=== PATIENT | male | born 1965 | race Caucasian/White ===

== ENCOUNTER → 2020-08-03 14:46 | Outpatient (BNVA) | payer BC, SELFPAY | PROVIDERS: PCP Internal Medicine; Visit Provider Urology ==

== ENCOUNTER 2020-09-14 13:19 | Outpatient (REF) | payer BC, SELFPAY ==
--- NOTE | ~2020-09-14 | US_ITS ---
EXAMINATION: PENILE ULTRASOUND CLINICAL INFORMATION: Peyronie disease COMPARISON: None TECHNIQUE: Renal ultrasound FINDINGS: The corpus cavernosum and corpus spongiosum appear unremarkable. There are calcifications seen about the midline dorsal aspect of the body of the penis closer to the glands which does not appear to be related to the dorsal vessels. US/US penile IMPRESSION: Calcifications about the dorsum of the penis which do not appear to be associated with the dorsal veins or arteries.
== END 2020-09-14 13:20 | disposition home or self-care (01) ==
LOC: HO.US 13:19
PROVIDERS: Visit Provider Urology
DX: N48.6 Induration penis plastica (principal)
CPT/HCPCS: 76857

== ENCOUNTER → 2020-09-21 13:30 | Outpatient (BNVA) | payer BC, SELFPAY | PROVIDERS: PCP Internal Medicine; Visit Provider Urology ==

== ENCOUNTER 2021-01-07 12:13 | Outpatient (REF) | payer BC, SELFPAY | END 2021-01-07 12:14 | disposition home or self-care (01) | LOC: HO.LAB 12:13 | PROVIDERS: PCP Internal Medicine; Visit Provider Internal Medicine | DX: Z20.822 Contact with and (suspected) exposure to COVID-19 (principal) | CPT/HCPCS: C9803; U0003; U0005 ==

== ENCOUNTER 2021-03-07 09:48 | Outpatient (REF) | payer BC, SELFPAY ==
[2021-03-07 10:20] LABS: Binax Internal Control QC Valid; Binax Now Covid-19 Ag Positive (Negative)
== END 2021-03-07 09:49 | disposition home or self-care (01) ==
LOC: HO.LAB 09:48
PROVIDERS: Visit Provider Internal Medicine
DX: Z20.822 Contact with and (suspected) exposure to COVID-19 (principal)
CPT/HCPCS: C9803

== ENCOUNTER → 2021-03-25 13:03 | Outpatient (BNVA) | payer BC, SELFPAY | PROVIDERS: PCP Internal Medicine; Visit Provider Urology ==

== ENCOUNTER 2021-06-10 11:28 | Outpatient (REF) | payer BC, SELFPAY ==
[2021-06-10 12:37] LABS: COVID-19 Test Negative (Negative)
== END 2021-06-10 11:29 | disposition home or self-care (01) ==
LOC: HO.LAB 11:28
PROVIDERS: Visit Provider Internal Medicine
DX: Z20.822 Contact with and (suspected) exposure to COVID-19 (principal)
CPT/HCPCS: 87635; C9803

== ENCOUNTER 2021-12-20 08:16 | Outpatient (REF) | payer BC, SELFPAY ==
[2021-12-20 10:34] LABS: MANUAL DIFF FLAG NO
[2021-12-20 10:45] LABS: Basophils Absolute Auto 0.1 X10*3/uL (0.0-0.2); Basophils Percent Auto 0.8 % (0-2); Eosinophils Absolute Auto 0.2 X10*3/uL (0.0-0.4); Eosinophils Percent Auto 3.3 % (0-4); Hematocrit 46.4 % (42.0-52.0); Hemoglobin 15.4 g/dl (14.0-18.0); Imm Gran Abs Auto 0.01 X10*3/uL (0.00-0.03); Imm Gran Pct Auto 0.1 % (0.0-0.4); Lymphocytes Absolute Auto 1.3 X10*3/uL (1.2-4.9); Mean Corpuscular HGB Conc 33.2 g/dl (31.0-36.0); Mean Corpuscular Hemoglobin 30.3 pg (27.0-33.0); Mean Corpuscular Volume 91.2 fL (80.0-98.0); Mean Platelet Volume 9.2 fL (9.4-12.4); Monocytes Absolute Auto 0.6 X10*3/uL (0.1-1.2); Monocytes Percent Auto 8.5 % (2-11); Neutrophils Absolute Auto 5.1 x10*3/uL (2.0-8.3); Neutrophils Percent Auto 69.3 % (45-73); Platelet Count 254 X10*3/uL (160-400); Red Blood Count 5.09 X10*6/uL (4.60-5.80); Red Cell Distribution Width 13.2 % (11.0-16.0); White Blood Count 7.3 X10*3/uL (4.8-10.8)
[2021-12-20 11:26] LABS: Alanine Aminotransferase 15 U/L (0-40); Albumin Level 4.1 g/dL (3.5-5.0); Alkaline Phosphatase 77 U/L (39-117); Anion Gap 12 (12-20); Aspartate Amino Transferase 16 U/L (5-37); Bilirubin Total 0.5 mg/dL (0.0-1.0); Blood Urea Nitrogen 16 mg/dL (9-16); Calcium 8.8 mg/dL (8.4-10.2); Carbon Dioxide 27 mmol/L (22-29); Chloride 104 mmol/L (96-108); Cholesterol 166 mg/dL; Estimated Glomerular Filt Rate > 60; Glucose Random 91 mg/dL (60-115); HDL Cholesterol 43 mg/dL; LDL Cholesterol Calculated 107 mg/dl; Potassium 4.7 mmol/L (3.3-5.1); Prostate Specific Antigen Scr 1.34 ng/mL (<0.05-4.0); Sodium 138 mmol/L (135-145); Thyroid Stimulating Hormone 0.86 uIU/mL (0.32-4.0); Total Protein 6.6 g/dL (6.5-8.0); Triglycerides 80 mg/dL
== END 2021-12-20 08:17 | disposition home or self-care (01) ==
LOC: HO.10HDL 08:16
PROVIDERS: Visit Provider Internal Medicine
DX: M51.36 Other intervertebral disc degeneration, lumbar region (principal); E78.00 Pure hypercholesterolemia, unspecified; Z12.5 Encounter for screening for malignant neoplasm of prostate
CPT/HCPCS: 36415; 80053; 80061; 84153; 84439; 84443; 85025

== ENCOUNTER 2022-01-30 11:59 | Day surgery (SDC) | payer BC, SELFPAY ==
--- NOTE | 2022-01-27 09:43 | HO.ANESPROP2 ---
Documented by User: Eva Pascal NP 01/27/22 09:44 HPI - Anesthesia Eval Consult details Narrative: 56yo M for Plication For Peyonies Disease PMFSH Active Problems Active Problems: All Active Problems (Updated 12/19/21 @ 15:13 by Calos Salamanca MD) Tinea pedis (Acute) Colonoscopy refused (Acute) History of tobacco abuse (Acute) Colon cancer screening (Acute) Annual physical exam (Acute) COVID-19 virus infection (Acute) Lumbar degenerative disc disease (Acute) Peripheral neuropathy (Acute) Peyronie's disease (Acute) Erectile dysfunction (Acute) Past Medical History Medical History Colon cancer screening Erectile dysfunction Family History Family History Father Pancreatic cancer Hx of CABG Surgical History Surgical History (Updated 01/30/22 @ 12:38 by July Ann RN) No pertinent past surgical history Social History Social History Housing: House Alcohol intake: current Patient Tobacco Use Status: Former Tobacco user Quit Date: 15 yr ago Tobacco use type: Cigarette Years Smoked: quit 2011 e-Cigarette/Vaping Use: Never Used Second Hand Smoke Exposure: No Use of substances other than those prescribed or required for medical reasons: Yes Substance Use Frequency: Occasionally Are you DNR?: No Advance Directives: No Advance Directives Information Provided: Yes Current occupational status: employed Cognitive needs: No Hearing needs: No Vision needs: Yes Meds Allergies Allergy/AdvReac Type Severity Reaction Status Date / Time No Known Allergies Allergy Verified 01/30/22 12:38 [No Known Allergies*] Exam Exam Date and Time: January 27, 2022 0943 Pertinent Lab Results Pertinent Lab Results: Laboratory Tests 12/20/21 12/20/21 08:00 08:00 WBC 7.3 Hgb 15.4 Hct 46.4 Plt Count 254 Sodium 138 Potassium 4.7 Chloride 104 Carbon Dioxide 27 BUN 16 Creatinine 0.90 Assessment and Plan Assessment Anesthesia Assessment: Chart Reviewed Documented by User: Zuhair Andrea MD 01/30/22 17:47 PMF Past Medical History Medical History Colon cancer screening Erectile dysfunction Functional capacity: independent ambulation Family History Family History Father Pancreatic cancer Hx of CABG Family history of problems with anesthesia: No Surgical History Surgical History (Updated 01/30/22 @ 12:38 by July Ann, RICHARD) No pertinent past surgical history History of Problems with Anesthesia: No Social History Social History Housing: House Alcohol intake: current Patient Tobacco Use Status: Former Tobacco user Quit Date: 15 yr ago Tobacco use type: Cigarette Years Smoked: quit 2011 e-Cigarette/Vaping Use: Never Used Second Hand Smoke Exposure: No Use of substances other than those prescribed or required for medical reasons: Yes Substance Use Frequency: Occasionally Are you DNR?: No Advance Directives: No Advance Directives Information Provided: Yes Current occupational status: employed Cognitive needs: No Hearing needs: No Vision needs: Yes Meds Allergies Allergy/AdvReac Type Severity Reaction Status Date / Time No Known Allergies Allergy Verified 01/30/22 12:38 [No Known Allergies*] Exam Airway Mallampati Class: III TM Dist: >3cm Neck ROM: Full (santamaria ) Loose/Missing/Broken Teeth: Yes Heart: S1,S2 Lungs: b/l breath sounds Assessment and Plan Assessment Anesthesia Assessment: Anesthesia Plan Discussed Final Anesthetic Review Family History of Problems with Anesthesia: No History of Problems with Anesthesia: No NPO: Yes ASA Class: II Final Preanesthetic Review: Meds/Allgs Chart Reviewed, Consent Obtained/Reviewed and Anes Risks/Benef Reviewed Patient Risk: Intermediate Procedure Risk: Intermediate Anesthetic Plan Anesthetic Plan: GA Disposition: Standard PACU
[2022-01-30] VITALS (9 sets, daily range): BP systolic 97–117; BP diastolic 35–70; PULSE 54–68; RESP 15–18; TEMP 36.1–36.6; O2SAT 95–100; BMI 25.0
[2022-01-30] MEDS: Lactated Ringers 1,000 ML 100 ML IVCONT (12:37)
--- NOTE | 2022-01-30 15:12 | MHC.SHP ---
Pre-Procedural Eval Section A Date of Service: 01/30/22 The patient is an INPATIENT: No Changes since office visit: No Cold of Flu in the past 2 weeks, No New Medical Problems, No Changes in Medication and No Patient answered all questions The History & Physical has been completed within 30 days and I have reviewed it.: Yes Section B Chief Complaint: Induration penis plastica Allergies: Allergies Allergy/AdvReac Type Severity Reaction Status Date / Time No Known Allergies Allergy Verified 01/30/22 12:38 [No Known Allergies*] Review of Systems Sugical H&P ROS: Negative: Constitution, Cardiovascular, Respiratory, Neurological, Psychiatric, Hem-Onc, Allergic/Immunologic, Gastrointestinal, Genitourinary, Musculoskeletal, Integumentary, Endocrine and Eyes/Ears/Nose/Throat Exam Surgical H&P Exam: Normal: HEENT, Normal: Heart, Normal: Lungs, Normal: Extremities, Normal: Abdomen, Normal: Skin and Normal: Neurological Plan Diagnosis/Plan: Unchanged ( Peyronie penile plication) I have reviewed the history and physical and performed a pertinent physical examination on my patient. No changes have occurred unless specified. Time Spent With Patient Time: Total time managing care of this patient today ____ minutes.
--- NOTE | 2022-01-30 16:50 | W.PM.OPN ---
Operative Note Operative Note Date of Service: 01/30/22 Narrative: PreOperative Diagnosis: Peyronie's disease with Ventral penile curvature Post Operative Diagnosis: Peyronie's disease with Ventral curvature Procedure: Artificial erection with penile plication Surgeon: Dr Victor Manuel Solis Anesthesia: General Indications for procedure: Penile curvature that has failed conservative therapy. The patient had undergone intermittent vacuum pump therapy with failure of resolution. Current erection with Forty-five degree dorsal curvature. 30 degree left horizontal curvature. Curvature in proximal high of penis when erect. Casper understands available options including risks for erectile dysfunction, bruising, need for secondary procedure. at baseline has minimal erectile issues. Procedure: After informed consent was verified the patient was brought to the operating room and placed in a supine position. Anesthesia was administered per protocol. Genital area was shaved. The patient was prepped and draped in a sterile fashion. Safety pause time-out was performed. Antibiotics have been given. Dorsal nerve block was performed and penile ring block with local anesthetic was completed for post procedure pain control. Sixteen Chadian Amin catheter was placed on the field. Using a Mata drain and a 21 gauge butterfly needle an artificial erection was induced with injectable saline 60cc. The 45 degree curvature was quite marked in the distal aspect of the shaft approximately 2 cm from the penile sulcus This was at maximum inflection 2 cm proximal from the penile sulcus along the penile shaft. A 4 cm incision was marked along the ventral median raphe just distal to penoscrotal junction. Local anesthetic was infiltrated and the incision taken down through the subcutaneous tissue to expose the corpora spongiosum. Dissection of Wassaic fascia was performed laterally on each side exposing the corpora cavernosa. The artificial erection was reinforced. Senz retractors were used to manipulate the incision over the full length of the penis. 3.0 Surgilon sutures were placed 4 mm from the boundary between the spongiosum and the corpora. The sutures were placed in a anob-[id number]-[id number] configuration with 4-5mm between each needle pass. Sutures were first placed toward the glans of the penis with 2 sutures on both the left and the right sides. This alone corrected significant portion of the curvature. Three additional sutures were placed running in the line in down the right corporal body. Another additional suture was placed in the proximal half of the left corporal body. Each suture had approximately 5 throws for knot. Curvature was able to be corrected to between 5 and 10%. Excess suture material was removed. Each line of sutures was covered with a layer of tissue using a running 3-0 Vicryl reapproximatling Gonzalez's fascia. A 2nd layer of tissue was then placed over the suture lines using running 3.0 vicryl. Skin was closed with 4.0 monocryl with glue over the incision. A dressing was placed consisting of Leticia wrap and Coban dressing. Amin catheter was removed.The patient tolerated the procedure well, was extubated in the operating room and transferred in stable condition to the recovery area. Pathology: none Drains: none
== END 2022-01-30 18:37 | disposition home or self-care (01) ==
PROVIDERS: PCP Internal Medicine; Visit Provider Urology
PROC: (CPT 54360; principal; 2022-01-30 13:30)
DX: N48.6 Induration penis plastica (principal); N52.9 Male erectile dysfunction, unspecified; Z87.891 Personal history of nicotine dependence
CPT/HCPCS: 54360; J0690; J2250; J2405; J2795; J3010

== ENCOUNTER → 2022-02-01 10:25 | Outpatient (BNVA) | payer BC, SELFPAY | PROVIDERS: PCP Internal Medicine; Visit Provider Urology | DX: Z13.89 Encounter for screening for other disorder (principal) ==

== ENCOUNTER → 2022-03-17 13:17 | Outpatient (BNVA) | payer BC, SELFPAY | PROVIDERS: PCP Internal Medicine; Visit Provider Urology | DX: Z13.89 Encounter for screening for other disorder (principal) ==

== ENCOUNTER 2022-05-28 18:30 | Inpatient (IN) | payer BC, SELFPAY ==
--- NOTE | ~2022-05-28 | US_ITS ---
EXAMINATION: US ABDOMEN LIMITED CLINICAL INFORMATION: Right upper quadrant pain. COMPARISON: None available. TECHNIQUE: Real-time imaging of the right upper quadrant abdominal viscera. FINDINGS: PANCREAS: Normal. LIVER: The liver is normal in size. The liver contour is normal. Parenchymal echogenicity is normal. No focal hepatic lesion. There is no intrahepatic biliary duct dilatation seen. GALLBLADDER: Normal. The gallbladder is physiologically distended. Multiple mobile gallstones are present, the largest measuring 2.2 x 1.6 x 2.2 cm. There is an impacted stone in the gallbladder neck measuring 1.2 x 0.9 x 1.2 cm. There is a 3 mm gallbladder polyp present. No evidence of gallbladder wall thickening or pericholecystic fluid. COMMON BILE DUCT: Normal in caliber measuring 0.3 cm in diameter. RIGHT KIDNEY: No hydronephrosis. No renal calculi or focal parenchymal lesions. The kidney measures 10.6 cm in maximum dimension. FREE FLUID: None. US/US abdomen limited IMPRESSION: 1. Cholelithiasis with an impacted stone in the gallbladder neck. No pericholecystic fluid suggests cholecystitis. 2. 3 mm gallbladder polyp.
--- NOTE | ~2022-05-28 | XR_ITS ---
EXAMINATION: XR CHEST CLINICAL INFORMATION: Back pain radiating to the chest since this morning. COMPARISON: Chest radiograph 11/23/2009 TECHNIQUE: 2 views of the chest were obtained. FINDINGS: Normal appearance of the cardiomediastinal structures. No effusions or pneumothoraces. No focal pulmonary consolidation. Normal pattern of pulmonary vasculature. Mild multilevel endplate osteophytosis of the thoracic spine. XR/XR chest 2V IMPRESSION: No acute cardiopulmonary abnormalities. Lungs clear. Normal cardiomediastinal silhouette.
--- NOTE | 2022-05-28 18:32 | ECG_ITS ---
Test Reason : Back rib cage pain Blood Pressure : / mmHG Vent. Rate : 063 BPM Atrial Rate : 063 BPM P-R Int : 116 ms QRS Dur : 086 ms QT Int : 390 ms P-R-T Axes : 048 048 047 degrees QTc Int : 399 ms Sinus rhythm with occasional Premature ventricular complexes Otherwise normal ECG When compared with ECG of 10-AUG-2007 16:50, Premature ventricular complexes are now Present Referred By: Viktoriya Morejon Electronically Signed By:MADHU FRANKS
[2022-05-28 18:40] VITALS: BP 129/74; PULSE 63; RESP 18; TEMP 36.4; O2SAT 100; BMI 25.7
--- NOTE | 2022-05-28 18:40 | ED.BACK ---
HPI - Back Pain/Injury General Chief Complaint: Chest Pain <JOSE DAVID Neri - Last Filed: 05/28/22 18:43> Stated Complaint: back pain, rib cage pain, chest pain? <JOSE DAVID Neri - Last Filed: 05/28/22 18:43> Time Seen by Provider: 05/28/22 20:24 <JOSE DAVID Neri - Last Filed: 05/28/22 18:43> Source: patient <Santi Amin MD - Last Filed: 05/29/22 00:49> Mode of arrival: ambulatory <Santi Amin MD - Last Filed: 05/29/22 00:49> Limitations: no limitations <Santi Amin MD - Last Filed: 05/29/22 00:49> History of Present Illness HPI Narrative: 57 years old with no significant past medical history comes here with pain in right lower ribs area radiating to the right upper quadrant started at noon time while watching TV patient had lunch after that and pain got worse no nausea no vomiting never had similar pain in the past no fever no chills no diarrhea no abdominal distension no use of alcohol patient does have low back problems <Santi Amin MD - Last Filed: 05/29/22 00:49> Related Data Home Medications: Previous Rx's Medication Instructions Recorded miconazole nitrate 2 % topical 1 appl topical BID #85 grams 12/19/21 powder (Zeasorb AF) naproxen 500 mg tablet 500 mg PO BID PRN pain 7 days #14 01/30/22 tabs <JOSE DAVID Neri - Last Filed: 05/28/22 18:43> Allergies/Adverse Reactions: Allergies Allergy/AdvReac Type Severity Reaction Status Date / Time No Known Allergies Allergy Verified 05/28/22 18:43 [No Known Allergies*] <JOSE DAVID Neri - Last Filed: 05/28/22 18:43> Review of Systems Review of Systems: Yes all other systems are reviewed and are negative <Santi Amin MD - Last Filed: 05/29/22 00:49> PMFSH Past Medical History Medical History: Medical History Colon cancer screening Erectile dysfunction <JOSE DAVID Neri Last Filed: 05/28/22 18:43> Surgical History: Surgical History No pertinent past surgical history <JOSE DAVID Neri - Last Filed: 05/28/22 18:43> Family History Family History: Family History Father Pancreatic cancer Hx of CABG <JOSE DAVID Neri - Last Filed: 05/28/22 18:43> Social History Social History: Social History Housing: House Alcohol intake: current Alcohol intake frequency: holidays/special occasions only Patient Tobacco Use Status: Former Tobacco user Quit Date: 15 yr ago Tobacco use type: Cigarette Years Smoked: quit 2012 Smoked in Last 30 Days: No e-Cigarette/Vaping Use: Never Used Second Hand Smoke Exposure: No Use of substances other than those prescribed or required for medical reasons: Yes Substance Use Type: Marijuana Advance Directives: No Advance Directives Information Provided: No Current occupational status: employed Cognitive needs: No Hearing needs: No Vision needs: Yes <JOSE DAVID Neri - Last Filed: 05/28/22 18:43> Physical Exam Vital Signs: Vital Signs: Last Vital Signs Temp 98.2 F 05/28/22 22:16 Pulse 63 05/28/22 22:16 Resp 18 05/28/22 22:16 BP 114/68 05/28/22 22:16 Pulse Ox 98 05/28/22 22:16 O2 Del Method Room Air 05/28/22 22:16 BMI result Body Mass Index 25.7 <JOSE DAVID Neri - Last Filed: 05/28/22 18:43> Vital Signs: Last Vital Signs Temp 98.2 F 05/28/22 22:16 Pulse 63 05/28/22 22:16 Resp 18 05/28/22 22:16 BP 114/68 05/28/22 22:16 Pulse Ox 98 05/28/22 22:16 O2 Del Method Room Air 05/28/22 22:16 BMI result Body Mass Index 25.7 <Santi Amin MD - Last Filed: 05/29/22 00:49> Appearance: Alert. Oriented X3. No acute distress. Eyes: No pallor/ icterus ENT: Pharynx normal. Oral Mucosa moist Neck: Normal inspection. Neck supple. CVS: Normal heart rate and rhythm. Pulses normal. Respiratory: No respiratory distress. Equal air entry bilateral, no wheezing/rales/rhonchi Abdomen: Soft sharp tenderness in right upper quadrant on deep palpation Bowel sounds are present, no mass palpable, no CVA tenderness Skin: Skin warm and dry. Normal skin color. Normal skin turgor. Extremities: No lower extremity edema. No calf tenderness Neuro: Oriented X 3. No motor deficit. <Santi Amin MD - Last Filed: 05/29/22 00:49> Course Course Course Narrative: DARYL-18:40PM - 57yoM was presenting to the ED with c/o of a right mid back pain that radiates to his chest that started this morning. Reports resolved left hand numbness and resolved bilateral feet numbness. Reports he had a similar episode in the past although is unsure what it was. He denies any dizziness, lightheadedness, change in vision, nausea/vomiting, shortness of breath or dyspnea on exertion orthopnea, palpitations, abdominal pain or any other symptoms complaints or concerns at this time. Plan: Labs, EKG and chest x-ray ordered at this time patient to be seen in the ED patient sent back to the waiting room. <JOSE DAVID Neri - Last Filed: 05/28/22 18:43> Medications Administered Generic Name Dose Route Start Last Admin Trade Name Freq PRN Reason Stop Dose Admin Lactated Ringer's 1,000 mls @ 100 mls/hr 05/28/22 22:45 05/29/22 00:48 Lr IVCONT 100 mls/hr .Q10H JOSE EDUARDO Administration Discontinued Medications Generic Name Dose Route Start Last Admin Trade Name Freq PRN Reason Stop Dose Admin Cyclobenzaprine HCl 10 mg 05/28/22 20:37 05/28/22 20:51 Cyclobenzaprine Hcl 10 Mg Tablet PO 05/28/22 20:38 10 mg ONCE ONE Administration Sodium Chloride 1,000 mls @ 999 mls/hr 05/28/22 22:30 05/29/22 00:27 Ns IV 05/28/22 23:30 Infused .Q1H1M ONE Infusion Morphine Sulfate 4 mg 05/28/22 22:30 05/28/22 23:20 Morphine Sulfate 4 Mg/Ml Cartridge IVPUSH 05/28/22 22:31 4 mg ONCE ONE Administration Protocol Ondansetron HCl 4 mg 05/28/22 22:30 05/28/22 23:21 Ondansetron Hcl 4 Mg/2 Ml Vial IVPUSH 05/28/22 22:31 4 mg ONCE ONE Administration Tramadol HCl 50 mg 05/28/22 20:37 05/28/22 20:50 Tramadol Hcl 50 Mg Tablet PO 05/28/22 20:38 50 mg ONCE ONE Administration <JOSE DAVID Neri - Last Filed: 05/28/22 18:43> Medications Administered Generic Name Dose Route Start Last Admin Trade Name Freq PRN Reason Stop Dose Admin Lactated Ringer's 1,000 mls @ 100 mls/hr 05/28/22 22:45 05/29/22 00:48 Lr IVCONT 100 mls/hr .Q10H JOSE EDUARDO Administration Discontinued Medications Generic Name Dose Route Start Last Admin Trade Name Freq PRN Reason Stop Dose Admin Cyclobenzaprine HCl 10 mg 05/28/22 20:37 05/28/22 20:51 Cyclobenzaprine Hcl 10 Mg Tablet PO 05/28/22 20:38 10 mg ONCE ONE Administration Sodium Chloride 1,000 mls @ 999 mls/hr 05/28/22 22:30 05/29/22 00:27 Ns IV 05/28/22 23:30 Infused .Q1H1M ONE Infusion Morphine Sulfate 4 mg 05/28/22 22:30 05/28/22 23:20 Morphine Sulfate 4 Mg/Ml Cartridge IVPUSH 05/28/22 22:31 4 mg ONCE ONE Administration Protocol Ondansetron HCl 4 mg 05/28/22 22:30 05/28/22 23:21 Ondansetron Hcl 4 Mg/2 Ml Vial IVPUSH 05/28/22 22:31 4 mg ONCE ONE Administration Tramadol HCl 50 mg 05/28/22 20:37 05/28/22 20:50 Tramadol Hcl 50 Mg Tablet PO 05/28/22 20:38 50 mg ONCE ONE Administration <Santi Amin MD - Last Filed: 05/29/22 00:49> Medical Decision Making Medical Decision Making MDM Narrative: Patient with impacted gallstone at the gallbladder neck still having some pain will call surgery for admission for early cholecystectomy Dr. Kay will admit the patient <Santi Amin MD - Last Filed: 05/29/22 00:49> Lab Data [facility] Lab Attestation statement: I reviewed the patient's lab results. <Santi Amin MD - Last Filed: 05/29/22 00:49> Result Diagrams: 05/28/22 18:59 05/28/22 18:59 <JOSE DAVID Neri - Last Filed: 05/28/22 18:43> Labs: Lab Results 05/28/22 05/28/22 05/28/22 Range/Units 18:59 18:59 18:59 WBC 11.3 H (4.8-10.8) X10*3/uL RBC 5.07 (4.60-5.80) X10*6/uL Hgb 15.0 (14.0-18.0) g/dl Hct 45.1 (42.0-52.0) % MCV 89.0 (80.0-98.0) fL MCH 29.6 (27.0-33.0) pg MCHC 33.3 (31.0-36.0) g/dl RDW 13.2 (11.0-16.0) % Plt Count 292 (160-400) X10*3/uL MPV 9.1 L (9.4-12.4) fL Immature Gran % (Auto) 0.3 (0.0-0.4) % Neut % (Auto) 79.9 H (45-73) % Lymph % (Auto) 11.1 L (20-40) % [place] % (Auto) 7.6 (2-11) % Eos % (Auto) 0.7 (0-4) % Baso % (Auto) 0.4 (0-2) % Lymph # (Auto) 1.3 (1.2-4.9) X10*3/uL [place] # (Auto) 0.9 (0.1-1.2) X10*3/uL Eos # (Auto) 0.1 (0.0-0.4) X10*3/uL Baso # (Auto) 0.0 (0.0-0.2) X10*3/uL Abs Immat Gran (auto) 0.03 (0.00-0.03) X10*3/uL Absolute Neuts (auto) 9.1 H (2.0-8.3) x10*3/uL Absolute Nucleated RBC 0.000 (0.0-0.012) X10*3/uL Nucleated RBC % (auto) 0.0 (0.0-0.2) /100WBC PT 10.5 (10.0-13.1) SEC INR 0.9 (0.9-1.1) D-Dimer High Sensitivty 183 NG/ML Sodium 136 (135-145) mmol/L Potassium 3.9 (3.3-5.1) mmol/L Chloride 102 (96-108) mmol/L Carbon Dioxide 27 (22-29) mmol/L Anion Gap 11 L (12-20) BUN 12 (9-16) mg/dL Creatinine 1.00 (0.5-1.4) mg/dL Estim Creat Clear Calc 93.2 Estimated GFR > 60 Random Glucose 102 (60-115) mg/dL Calcium 8.6 (8.4-10.2) mg/dL Magnesium 1.7 (1.6-2.6) mg/dL Total Bilirubin 0.5 (0.0-1.0) mg/dL AST 14 (5-37) U/L ALT 9 (0-40) U/L Alkaline Phosphatase 106 (39-117) U/L Total Creatine Kinase 139 (38-174) U/L Troponin I High Sens (<3.5-35.0) ng/L Total Protein 6.6 (6.5-8.0) g/dL Albumin 4.0 (3.5-5.0) g/dL Amylase 55 (28-100) U/L Urine Color Urine Appearance Urine pH (5.0-9.0) Ur Specific [place] (1.005-1.025) Urine Protein (Neg-Trace) mg/dL Urine Glucose (UA) (Negative) mg/dL Urine Ketones (Negative) mg/dL Urine Blood (Negative) Urine Nitrite (Negative) Ur Leukocyte Esterase (Negative) Urine RBC (0-2) /HPF Urine WBC (0-5) /HPF Ur Squamous Epith Cells (0-2) /HPF Urine Bacteria (None Seen) Hyaline Casts (0-2) /LPF Influenza Type A (PCR) (Negative) Influenza Type B (PCR) (Negative) RSV RNA Qual (PCR) (Negative) SARS-CoV-2 RNA (RT-PCR) (Negative) 05/28/22 05/28/22 05/28/22 Range/Units 18:59 18:59 21:06 WBC (4.8-10.8) X10*3/uL RBC (4.60-5.80) X10*6/uL Hgb (14.0-18.0) g/dl Hct (42.0-52.0) % MCV (80.0-98.0) fL MCH (27.0-33.0) pg MCHC (31.0-36.0) g/dl RDW (11.0-16.0) % Plt Count (160-400) X10*3/uL MPV (9.4-12.4) fL Immature Gran % (Auto) (0.0-0.4) % Neut % (Auto) (45-73) % Lymph % (Auto) (20-40) % [place] % (Auto) (2-11) % Eos % (Auto) (0-4) % Baso % (Auto) (0-2) % Lymph # (Auto) (1.2-4.9) X10*3/uL [place] # (Auto) (0.1-1.2) X10*3/uL Eos # (Auto) (0.0-0.4) X10*3/uL Baso # (Auto) (0.0-0.2) X10*3/uL Abs Immat Gran (auto) (0.00-0.03) X10*3/uL Absolute Neuts (auto) (2.0-8.3) x10*3/uL Absolute Nucleated RBC (0.0-0.012) X10*3/uL Nucleated RBC % (auto) (0.0-0.2) /100WBC PT (10.0-13.1) SEC INR (0.9-1.1) D-Dimer High Sensitivty NG/ML Sodium (135-145) mmol/L Potassium (3.3-5.1) mmol/L Chloride (96-108) mmol/L Carbon Dioxide (22-29) mmol/L Anion Gap (12-20) BUN (9-16) mg/dL Creatinine (0.5-1.4) mg/dL Estim Creat Clear Calc Estimated GFR Random Glucose (60-115) mg/dL Calcium (8.4-10.2) mg/dL Magnesium (1.6-2.6) mg/dL Total Bilirubin (0.0-1.0) mg/dL AST (5-37) U/L ALT (0-40) U/L Alkaline Phosphatase (39-117) U/L Total Creatine Kinase (38-174) U/L Troponin I High Sens < 2.7 (<3.5-35.0) ng/L Total Protein (6.5-8.0) g/dL Albumin (3.5-5.0) g/dL Amylase (28-100) U/L Urine Color Yellow Urine Appearance Clear Urine pH >= 9.0 (5.0-9.0) Ur Specific [place] 1.020 (1.005-1.025) Urine Protein 30 (1+) H (Neg-Trace) mg/dL Urine Glucose (UA) Negative (Negative) mg/dL Urine Ketones Negative (Negative) mg/dL Urine Blood Negative (Negative) Urine Nitrite Negative (Negative) Ur Leukocyte Esterase Negative (Negative) Urine RBC 3-5 H (0-2) /HPF Urine WBC 0-5 (0-5) /HPF Ur Squamous Epith Cells 0-2 (0-2) /HPF Urine Bacteria None Seen (None Seen) Hyaline Casts 0-2 (0-2) /LPF Influenza Type A (PCR) NEGATIVE (Negative) Influenza Type B (PCR) NEGATIVE (Negative) RSV RNA Qual (PCR) NEGATIVE (Negative) SARS-CoV-2 RNA (RT-PCR) NEGATIVE (Negative) <JOSE DAVID Neri - Last Filed: 05/28/22 18:43> Lab Results 05/28/22 05/28/22 05/28/22 Range/Units 18:59 18:59 18:59 WBC 11.3 H (4.8-10.8) X10*3/uL RBC 5.07 (4.60-5.80) X10*6/uL Hgb 15.0 (14.0-18.0) g/dl Hct 45.1 (42.0-52.0) % MCV 89.0 (80.0-98.0) fL MCH 29.6 (27.0-33.0) pg MCHC 33.3 (31.0-36.0) g/dl RDW 13.2 (11.0-16.0) % Plt Count 292 (160-400) X10*3/uL MPV 9.1 L (9.4-12.4) fL Immature Gran % (Auto) 0.3 (0.0-0.4) % Neut % (Auto) 79.9 H (45-73) % Lymph % (Auto) 11.1 L (20-40) % [place] % (Auto) 7.6 (2-11) % Eos % (Auto) 0.7 (0-4) % Baso % (Auto) 0.4 (0-2) % Lymph # (Auto) 1.3 (1.2-4.9) X10*3/uL [place] # (Auto) 0.9 (0.1-1.2) X10*3/uL Eos # (Auto) 0.1 (0.0-0.4) X10*3/uL Baso # (Auto) 0.0 (0.0-0.2) X10*3/uL Abs Immat Gran (auto) 0.03 (0.00-0.03) X10*3/uL Absolute Neuts (auto) 9.1 H (2.0-8.3) x10*3/uL Absolute Nucleated RBC 0.000 (0.0-0.012) X10*3/uL Nucleated RBC % (auto) 0.0 (0.0-0.2) /100WBC PT 10.5 (10.0-13.1) SEC INR 0.9 (0.9-1.1) D-Dimer High Sensitivty 183 NG/ML Sodium 136 (135-145) mmol/L Potassium 3.9 (3.3-5.1) mmol/L Chloride 102 (96-108) mmol/L Carbon Dioxide 27 (22-29) mmol/L Anion Gap 11 L (12-20) BUN 12 (9-16) mg/dL Creatinine 1.00 (0.5-1.4) mg/dL Estim Creat Clear Calc 93.2 Estimated GFR > 60 Random Glucose 102 (60-115) mg/dL Calcium 8.6 (8.4-10.2) mg/dL Magnesium 1.7 (1.6-2.6) mg/dL Total Bilirubin 0.5 (0.0-1.0) mg/dL AST 14 (5-37) U/L ALT 9 (0-40) U/L Alkaline Phosphatase 106 (39-117) U/L Total Creatine Kinase 139 (38-174) U/L Troponin I High Sens (<3.5-35.0) ng/L Total Protein 6.6 (6.5-8.0) g/dL Albumin 4.0 (3.5-5.0) g/dL Amylase 55 (28-100) U/L Urine Color Urine Appearance Urine pH (5.0-9.0) Ur Specific [place] (1.005-1.025) Urine Protein (Neg-Trace) mg/dL Urine Glucose (UA) (Negative) mg/dL Urine Ketones (Negative) mg/dL Urine Blood (Negative) Urine Nitrite (Negative) Ur Leukocyte Esterase (Negative) Urine RBC (0-2) /HPF Urine WBC (0-5) /HPF Ur Squamous Epith Cells (0-2) /HPF Urine Bacteria (None Seen) Hyaline Casts (0-2) /LPF Influenza Type A (PCR) (Negative) Influenza Type B (PCR) (Negative) RSV RNA Qual (PCR) (Negative) SARS-CoV-2 RNA (RT-PCR) (Negative) 05/28/22 05/28/22 05/28/22 Range/Units 18:59 18:59 21:06 WBC (4.8-10.8) X10*3/uL RBC (4.60-5.80) X10*6/uL Hgb (14.0-18.0) g/dl Hct (42.0-52.0) % MCV (80.0-98.0) fL MCH (27.0-33.0) pg MCHC (31.0-36.0) g/dl RDW (11.0-16.0) % Plt Count (160-400) X10*3/uL MPV (9.4-12.4) fL Immature Gran % (Auto) (0.0-0.4) % Neut % (Auto) (45-73) % Lymph % (Auto) (20-40) % [place] % (Auto) (2-11) % Eos % (Auto) (0-4) % Baso % (Auto) (0-2) % Lymph # (Auto) (1.2-4.9) X10*3/uL [place] # (Auto) (0.1-1.2) X10*3/uL Eos # (Auto) (0.0-0.4) X10*3/uL Baso # (Auto) (0.0-0.2) X10*3/uL Abs Immat Gran (auto) (0.00-0.03) X10*3/uL Absolute Neuts (auto) (2.0-8.3) x10*3/uL Absolute Nucleated RBC (0.0-0.012) X10*3/uL Nucleated RBC % (auto) (0.0-0.2) /100WBC PT (10.0-13.1) SEC INR (0.9-1.1) D-Dimer High Sensitivty NG/ML Sodium (135-145) mmol/L Potassium (3.3-5.1) mmol/L Chloride (96-108) mmol/L Carbon Dioxide (22-29) mmol/L Anion Gap (12-20) BUN (9-16) mg/dL Creatinine (0.5-1.4) mg/dL Estim Creat Clear Calc Estimated GFR Random Glucose (60-115) mg/dL Calcium (8.4-10.2) mg/dL Magnesium (1.6-2.6) mg/dL Total Bilirubin (0.0-1.0) mg/dL AST (5-37) U/L ALT (0-40) U/L Alkaline Phosphatase (39-117) U/L Total Creatine Kinase (38-174) U/L Troponin I High Sens < 2.7 (<3.5-35.0) ng/L Total Protein (6.5-8.0) g/dL Albumin (3.5-5.0) g/dL Amylase (28-100) U/L Urine Color Yellow Urine Appearance Clear Urine pH >= 9.0 (5.0-9.0) Ur Specific [place] 1.020 (1.005-1.025) Urine Protein 30 (1+) H (Neg-Trace) mg/dL Urine Glucose (UA) Negative (Negative) mg/dL Urine Ketones Negative (Negative) mg/dL Urine Blood Negative (Negative) Urine Nitrite Negative (Negative) Ur Leukocyte Esterase Negative (Negative) Urine RBC 3-5 H (0-2) /HPF Urine WBC 0-5 (0-5) /HPF Ur Squamous Epith Cells 0-2 (0-2) /HPF Urine Bacteria None Seen (None Seen) Hyaline Casts 0-2 (0-2) /LPF Influenza Type A (PCR) NEGATIVE (Negative) Influenza Type B (PCR) NEGATIVE (Negative) RSV RNA Qual (PCR) NEGATIVE (Negative) SARS-CoV-2 RNA (RT-PCR) NEGATIVE (Negative) <Santi Amin MD - Last Filed: 05/29/22 00:49> Discharge Plan Discharge Clinical Impression: Biliary colic, Cholelithiasis with biliary obstruction <JOSE DAVID Neri - Last Filed: 05/28/22 18:43> Patient Disposition: Admitted As Inpatient <JOSE DAVID Neri - Last Filed: 05/28/22 18:43>
[2022-05-28 19:11] LABS: MANUAL DIFF FLAG NO
[2022-05-28 19:13] LABS: Basophils Percent Auto 0.4 % (0-2); Eosinophils Absolute Auto 0.1 X10*3/uL (0.0-0.4); Eosinophils Percent Auto 0.7 % (0-4); Hematocrit 45.1 % (42.0-52.0); Imm Gran Abs Auto 0.03 X10*3/uL (0.00-0.03); Imm Gran Pct Auto 0.3 % (0.0-0.4); Lymphocytes Absolute Auto 1.3 X10*3/uL (1.2-4.9); Lymphocytes Percent Auto 11.1 % (20-40); Mean Corpuscular HGB Conc 33.3 g/dl (31.0-36.0); Mean Corpuscular Hemoglobin 29.6 pg (27.0-33.0); Mean Platelet Volume 9.1 fL (9.4-12.4); Monocytes Absolute Auto 0.9 X10*3/uL (0.1-1.2); Monocytes Percent Auto 7.6 % (2-11); Neutrophils Absolute Auto 9.1 x10*3/uL (2.0-8.3); Neutrophils Percent Auto 79.9 % (45-73); Platelet Count 292 X10*3/uL (160-400); Red Blood Count 5.07 X10*6/uL (4.60-5.80); Red Cell Distribution Width 13.2 % (11.0-16.0); White Blood Count 11.3 X10*3/uL (4.8-10.8)
[2022-05-28 19:20] LABS: INTERNATIONAL NORM RATIO 0.9 (0.9-1.1); Prothrombin Time 10.5 SEC (10.0-13.1)
[2022-05-28 19:27] LABS: Alanine Aminotransferase 9 U/L (0-40); Alkaline Phosphatase 106 U/L (39-117); Anion Gap 11 (12-20); Aspartate Amino Transferase 14 U/L (5-37); Bilirubin Total 0.5 mg/dL (0.0-1.0); Blood Urea Nitrogen 12 mg/dL (9-16); Calcium 8.6 mg/dL (8.4-10.2); Carbon Dioxide 27 mmol/L (22-29); Chloride 102 mmol/L (96-108); Creatinine Clr Calc Pharmacy 93.2; Estimated Glomerular Filt Rate > 60; Glucose Random 102 mg/dL (60-115); Magnesium 1.7 mg/dL (1.6-2.6); Potassium 3.9 mmol/L (3.3-5.1); Sodium 136 mmol/L (135-145); Total Protein 6.6 g/dL (6.5-8.0)
[2022-05-28 19:35] LABS: Troponin-I High Sensitivity < 2.7 ng/L (<3.5-35.0)
[2022-05-28 19:53] LABS: Influenza A PCR NEGATIVE (Negative); Influenza B PCR NEGATIVE (Negative); Resp Syncy Virus RNA Qual PCR NEGATIVE (Negative); SARS COV2 PCR INHOUSE NEGATIVE (Negative)
[2022-05-28 20:45] LABS: D Dimer High Sensitivity 183 NG/ML
[2022-05-28] MEDS: traMADoL HCL 50 MG TABLET PO (20:50)
[2022-05-28] MEDS: Cyclobenzaprine HCl 10 MG TABLET PO (20:51)
[2022-05-28 21:14] LABS: Appearance Urine Clear; Color Urine Yellow; Glucose Urine UA Negative (Negative); Leukocyte Esterase Urine Negative (Negative); Nitrite Urine Negative (Negative); PH >= 9.0 (5.0-9.0); UMIC TRIGGER UACC YES; Urine Blood Negative (Negative); Urine Ketones Negative (Negative); Urine Protein 30 (1+) mg/dL (Neg-Trace)
[2022-05-28 21:19] LABS: Bacteria Urine None Seen (None Seen); Hyaline Casts Urine 0-2 /LPF (0-2); Squamous Epithelial Cell Urine 0-2 /HPF (0-2); WBC Urine 0-5 /HPF (0-5)
[2022-05-28 22:16] VITALS: BP 114/68; PULSE 63; RESP 18; TEMP 36.8; O2SAT 98
--- NOTE | 2022-05-28 22:44 | PM.HPGS ---
History of Present Illness History of Present Illness Date of Service: 05/29/22 Chief complaint: Biliary Colic Narrative: Casper Hurley Jr is a 57 year old male who began to experience back pain after lunch which was ill defined and then began to radiate towards his upper abdomen and epigastrium. He had some associated nausea and was evaluated by the emergency department. He was found to have a mild leukocytosis and gallstones in the neck of the gallbladder but had normal labs. He was admitted for pain management and observation since his presentation was possibly consistent with early acute calculous cholecystitis. This morning when the patient was seen at 07:00, the patient reported his abdominal pain had completely resolved. He was interested in having food and asked about the necessity of surgery since he was having no symptoms. He reports his symptoms have completely resolved. He otherwise has no chest pain, difficulty breathing or shortness of breath. He reports an issue with chronic back pain with radiculopathy. He denies any diabetes, mi, hypertension or other significant health issues. 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 Review of Systems Review of Systems: Yes all other systems are reviewed and are negative Constitutional: Constitutional: Reports as per [facility] Past Medical History Medical History Colon cancer screening Erectile dysfunction Family History Family History Father Pancreatic cancer Hx of CABG Surgical History Surgical History No pertinent past surgical history Social History Social History Household Members: Spouse and Children Housing: House Do you presently have visiting nurse or other home services: No Alcohol intake: current Alcohol intake frequency: holidays/special occasions only Patient Tobacco Use Status: Former Tobacco user Quit Date: 15 yr ago Tobacco use type: Cigarette Years Smoked: quit 2011 e-Cigarette/Vaping Use: Never Used Second Hand Smoke Exposure: No Substance Use Type: Marijuana service: No Current occupational status: employed Cognitive needs: No Hearing needs: No Vision needs: Yes Meds Allergies Allergy/AdvReac Type Severity Reaction Status Date / Time No Known Allergies Allergy Verified 05/28/22 18:43 [No Known Allergies*] Active Medications: Current Medications Hydromorphone HCl (Hydromorphone Hcl 0.5 Mg/0.5 Ml Syringe) 0.25 mg IVPUSH Q2H PRN; Protocol PRN Reason: Pain, Moderate (Pain Scale 4-6 Sodium Chloride (Ns) 1,000 mls @ 999 mls/hr IV .Q1H1M ONE Stop: 05/28/22 23:30 Lactated Ringer's (Lr) 1,000 mls @ 100 mls/hr IVCONT .Q10H JOSE EDUARDO Ondansetron HCl (Ondansetron Hcl 4 Mg/2 Ml Vial) 4 mg IVPUSH Q6H PRN PRN Reason: Nausea and Vomiting Home Medications Medication Instructions Recorded Confirmed Last Taken Type No Known Home Meds 05/29/22 05/29/22 Unknown History Physical Exam Vital Signs: Vital Signs: Last Vital Signs Temp 98.2 F 05/28/22 22:16 Pulse 63 05/28/22 22:16 Resp 18 05/28/22 22:16 BP 114/68 05/28/22 22:16 Pulse Ox 98 05/28/22 22:16 O2 Del Method Room Air 05/28/22 22:16 BMI result Body Mass Index 25.7 The patient is non-toxic & in good spirits NC/AT, PERRLA, EOMI Mood, affect & judgment all appear appropriate Sclera anicteric conjunctiva pink and moist Oropharynx is clear with no aphthous ulcers, dentition poor, Mallampati class 2, mucous membranes moist Neck is supple with no masses, adenopathy or bruits Thyroid is nontender and free of dominant masses Heart is regular, normal S1-S2 no rubs or murmurs Lungs are clear and equal anteriorly with no audible wheezing, rubs or dullness to percussion Abdomen is overweight with no demonstrable hernias. His abdomen is soft with absolutely no tenderness this morning. No HSM, rebound, rigidity, guarding, masses or bruits are present. Rectal exam is deferred Skin has good turgor and is free of rashes Extremities free of cyanosis clubbing edema Results Results Labs: Short CBC 05/28/22 Range/Units 18:59 WBC 11.3 H (4.8-10.8) X10*3/uL Hgb 15.0 (14.0-18.0) g/dl Hct 45.1 (42.0-52.0) % Plt Count 292 (160-400) X10*3/uL BMP 05/28/22 18:59 Sodium 136 Potassium 3.9 Chloride 102 Carbon Dioxide 27 BUN 12 Creatinine 1.00 Calcium 8.6 Cardiac Enzymes 05/28/22 Range/Units 18:59 Total Creatine Kinase 139 (38-174) U/L Liver Function 05/28/22 Range/Units 18:59 Total Bilirubin 0.5 (0.0-1.0) mg/dL AST 14 (5-37) U/L ALT 9 (0-40) U/L Alkaline Phosphatase 106 (39-117) U/L Albumin 4.0 (3.5-5.0) g/dL Urine 05/28/22 Range/Units 21:06 Urine Color Yellow Urine Appearance Clear Urine pH >= 9.0 (5.0-9.0) Ur Specific [place] 1.020 (1.005-1.025) Urine Protein 30 (1+) H (Neg-Trace) mg/dL Urine Glucose (UA) Negative (Negative) mg/dL Abdominal ultrasound report/results: report reviewed and image reviewed Assessment and Plan (1) Biliary colic: Status: Acute (2) Peyronie's disease: Status: Acute (3) Peripheral neuropathy: Status: Acute (4) Lumbar degenerative disc disease: Status: Acute Plan Admit for pain management, NPO & trending exam/labs Possible early GB NPO, IVF, analgesics & antiemetics Check am CMP & CBCD Addendum At 07:00, the patient was having absolutely no symptoms and was interested and being discharged in having surgery on an outpatient basis. He was placed on a clear liquid diet and when he was evaluated at 10:30, he was tolerating the diet and would like to possibly be discharged at noon. If the patient has nausea, vomiting or return of his pain, will keep him in the hospital and add him onto the OR schedule tomorrow. Briefly, the risks of laparoscopic cholecystectomy were reviewed. The risk of recurrence of his biliary colic was also reviewed. Instructions regarding a low-fat diet were also reviewed. addendum 1300 Pt tolerated clears & was given low fat diet instruction. He continues to deny pain. He will go home & f/u as outpt. Time Spent With Patient Time: Total time managing care of this patient today ____ minutes. Quality Stroke Does the patient have a stroke diagnosis?: No VTE Prior VTE?: No VTE Risk Level:: Surgical - moderate VTE Device Contraindication: N/A - Device Ordered VTE Drug Contraindication: Treatment Not Indicated Procedures Date of Service Date of Service: 05/29/22
[2022-05-28 23:04] LABS: Amylase 55 U/L (28-100)
[2022-05-28] MEDS: Morphine Sulfate 4 MG/ML CARTRIDGE IVPUSH (23:20)
[2022-05-28] MEDS: 0.9 % Sodium Chloride 1,000 ML 999 ML IV (23:21)
[2022-05-28] MEDS: ondansetron HCL 4 MG/2 ML VIAL IVPUSH (23:21)
--- NOTE | 2022-05-28 23:26 | PC.NURSE ---
I resumed care of the pt at 2300. Pt is resting quietly in bed at this time. Pt reports 7/10 pain in his abdomen. A 18g IV was inserted into the Left AC and pt was medicated per APR.
[2022-05-28 23:29] VITALS: PULSE 72
[2022-05-29] MEDS: Lactated Ringers 1,000 ML 100 ML IVCONT ×2 (00:48→09:39)
[2022-05-29 00:54] VITALS: BP 111/67; PULSE 66; RESP 16; TEMP 36.7; O2SAT 96
--- NOTE | 2022-05-29 01:07 | PC.NURSE ---
Pt able to ambulate around his room. Requested a urinal to void. Pt is back in bed comfortably, states his pain is better, about 4/10
[2022-05-29 04:20] VITALS: BP 96/47; PULSE 61; RESP 16; TEMP 36.7; O2SAT 96
[2022-05-29 05:59] LABS: MANUAL DIFF FLAG NO
[2022-05-29 06:09] LABS: Basophils Percent Auto 0.4 % (0-2); Eosinophils Absolute Auto 0.1 X10*3/uL (0.0-0.4); Eosinophils Percent Auto 0.9 % (0-4); Hematocrit 41.6 % (42.0-52.0); Hemoglobin 13.8 g/dl (14.0-18.0); Imm Gran Abs Auto 0.02 X10*3/uL (0.00-0.03); Imm Gran Pct Auto 0.2 % (0.0-0.4); Lymphocytes Absolute Auto 1.8 X10*3/uL (1.2-4.9); Lymphocytes Percent Auto 17.6 % (20-40); Mean Corpuscular HGB Conc 33.2 g/dl (31.0-36.0); Mean Corpuscular Hemoglobin 29.8 pg (27.0-33.0); Mean Corpuscular Volume 89.8 fL (80.0-98.0); Mean Platelet Volume 9.3 fL (9.4-12.4); Monocytes Absolute Auto 1.4 X10*3/uL (0.1-1.2); Monocytes Percent Auto 13.3 % (2-11); Neutrophils Absolute Auto 7.1 x10*3/uL (2.0-8.3); Neutrophils Percent Auto 67.6 % (45-73); Platelet Count 272 X10*3/uL (160-400); Red Blood Count 4.63 X10*6/uL (4.60-5.80); Red Cell Distribution Width 13.1 % (11.0-16.0); White Blood Count 10.4 X10*3/uL (4.8-10.8)
[2022-05-29 06:21] LABS: Alanine Aminotransferase 8 U/L (0-40); Albumin Level 3.4 g/dL (3.5-5.0); Alkaline Phosphatase 94 U/L (39-117); Anion Gap 13 (12-20); Aspartate Amino Transferase 12 U/L (5-37); Bilirubin Total 0.8 mg/dL (0.0-1.0); Blood Urea Nitrogen 9 mg/dL (9-16); Calcium 8.3 mg/dL (8.4-10.2); Carbon Dioxide 26 mmol/L (22-29); Chloride 105 mmol/L (96-108); Creatinine Clr Calc Pharmacy 99.1; Estimated Glomerular Filt Rate > 60; Glucose Random 97 mg/dL (60-115); Potassium 4.5 mmol/L (3.3-5.1); Sodium 139 mmol/L (135-145); Total Protein 5.5 g/dL (6.5-8.0)
[2022-05-29 06:43] VITALS: BP 106/58; PULSE 76; RESP 12; O2SAT 97
--- NOTE | 2022-05-29 07:59 | PHA.MEDREC ---
Pharmacy Consult ? Medication Reconciliation Pharmacy has completed the medication reconciliation. SPOKE WITH PATIENT, HE IS NOT TAKING ANY MEDS/SUPPLEMENTS.
[2022-05-29 09:04] VITALS: BP 121/70; PULSE 62; RESP 14; TEMP 36.3; O2SAT 99
--- NOTE | 2022-05-29 12:38 | MHC.CM.PN ---
pt lives with familyis wily vax x 3 has own ride home and wioll not need servcis when dcd
--- NOTE | 2022-05-29 13:41 | MHC.CM.PN ---
pt dcd no skilled servceis ordered by
--- NOTE | 2022-05-29 13:49 | MHC.CM.PN ---
home no servcies hcp mailed to pt
== END 2022-05-29 13:27 | disposition home or self-care (01) ==
LOC: HO.ED 22:38 → HO.EDOVER 22:51 → HO.S3 05-29 07:21
PROVIDERS: Physician Assistant Medical; Admitting Provider Surgery; Emergency Provider Internal Medicine; PCP Internal Medicine; Visit Provider Surgery
DX: K80.50 Calculus of bile duct without cholangitis or cholecystitis without obstruction (principal); N48.6 Induration penis plastica; M51.36 Other intervertebral disc degeneration, lumbar region; Z87.891 Personal history of nicotine dependence
CPT/HCPCS: 0241U; 36415; 71046; 76705; 80053; 81001; 82150; 82550; 83735; 84484; 85025; 85379; 85610; 93005; 99221; 99285; J2270; J2405

== ENCOUNTER → 2022-06-01 10:27 | Outpatient (BNVA) | payer BC, SELFPAY | PROVIDERS: PCP Internal Medicine; Visit Provider Surgery | DX: Z13.89 Encounter for screening for other disorder (principal) ==

== ENCOUNTER → 2022-06-29 13:03 | Outpatient (BNVA) | payer BC, SELFPAY | PROVIDERS: PCP Internal Medicine; Visit Provider Surgery ==

== ENCOUNTER 2022-12-26 12:44 | Outpatient (AMB) | payer BC, SELFPAY ==
[2022-12-26 12:45] VITALS: BP 100/56; PULSE 73; O2SAT 99; BMI 24.8
--- NOTE | 2022-12-26 12:45 | A.OFFPC_ITS ---
Vital Signs 12/26/22 12:45 Height 6 ft 1 in Weight 188 lb BMI 24.8 BP 100/56 L Blood Pressure Location Lt brachial Position Sitting Pulse 73 Pulse Source Pulse Oximeter Pulse Oximetry (%) 99 Oxygen Delivery Method Room Air Intake Visit Reasons: Annual exam Beading Installer Required: No Dialysis Social Worker: Not Required per policy Accompanied by: Self / Same As Patient Allergies No Known Allergies [No Known Allergies*] Allergy (Verified 12/26/22 12:46) Medication List - Last Reconciled 12/26/22 by Calos Salamanca MD No Known Home Meds Tobacco use date assessed: 06/15/22 Dental Screening Dental Screen Date: 12/26/22 Did you have a dental visit in the last 12 months?: No Did you have a dental problem in the last 6 months where you did not have access to dental care?: No Was dental information given to patient?: Patient has dentist HPI Annual exam HPI Details 57-year-old male with a history of lumba r degenerative disc disease and biliary colic coming in for physical exam. Patient has cholelithiasis but notes from surgeon patient wants to hold off procedure. [facility] Medical History (Updated 12/26/22 @ 13:18 by Calos Salamanca MD) Annual physical exam Colon cancer screening Erectile dysfunction Surgical History No pertinent past surgical history Family History Father Pancreatic cancer Hx of CABG Social History (Updated 12/26/22 @ 13:22 by Calos Salamanca MD) Household Members: Spouse and Children Housing: House Do you presently have visiting nurse or other home services: No Alcohol intake: current Alcohol intake frequency: holidays/special occasions only Patient Tobacco Use Status: Former Tobacco user Quit Date: 15 yr ago Tobacco use type: Cigarette Years Smoked: quit 2011 e-Cigarette/Vaping Use: Never Used Second Hand Smoke Exposure: No Substance Use Type: Marijuana service: No Current occupational status: employed Cognitive needs: No Hearing needs: No Vision needs: Yes Questionnaire PHQ-9 Over the last 2 weeks, how often have you been bothered by any of the following problems? 1. Little interest or pleasure in doing things: not at all 2. Feeling down, depressed, or hopeless: not at all 3. Trouble falling or staying asleep, or sleeping too much: not at all 4. Feeling tired or having little energy: not at all 5. Poor appetite or overeating: not at all 6. Feeling bad about yourself - or that you are a failure or have let yourself or your family down: not at all 7. Trouble concentrating on things, such as reading the newspaper or watching television: not at all 8. Moving or speaking so slowly that other people could have noticed. Or the opposite - being so fidgety or restless that you have been moving around a lot more than usual: not at all 9. Thoughts that you would be better off or of hurting yourself in some way: not at all Total score: 0 Depression Screening Interpretation: Negative Depression Screening Done: Yes Source: Developed by Drs. Edinson Sapp, Katharine Glover, Maxi Felder and colleagues, with an educational lisa from [employer]. Thrive Questionnaire Date Thrive assessed: 06/15/22 AUDIT C Alcohol Use Questionnaire (AUDIT-C) 1. How often do you have a drink containing alcohol?: 2-4 times a month 2. How many drinks containing alcohol do you have on a typical day when you are drinking?: 1 or 2 3. How often do you have six or more drinks on one occasion?: Never Total Score: 2 JUDITH-7 AMB Questionnaire JUDITH-7 Date JUDITH - 7 assessed: 06/15/22 Source: Developed by Drs. Edinson Sapp, Katharine Glover, Maxi Felder and colleagues, with an educational lisa from [employer]. Review of Systems Const Denies poor appetite and Denies weakness Eyes Denies no additional complaints ENT Reports Normal hearing present, Denies dizziness, Denies nasal congestion, Denies tinnitus and Denies sore throat Card Denies chest pain, Denies syncope, Denies rapid heart rate and Denies dyspnea Resp Denies cough and Denies dyspnea GI Denies change in stool character, Reports constipation, Denies diarrhea, Denies nausea and Denies vomiting Denies dysuria and Denies urinary frequency Neuro Reports Normal hearing present, Denies confusion, Denies dizziness, Denies syncope and Denies weakness Psych Denies confusion Physical exam (Primary Care) Vital Signs: Last Vital Signs Pulse 73 12/26/22 12:45 BP 100/56 L 12/26/22 12:45 Pulse Ox 99 12/26/22 12:45 Oxygen Delivery Method Room Air 12/26/22 12:45 BMI result Body Mass Index 24.8 Tobacco/Smoking Status: Tobacco use Status Tobacco use date assessed 06/15/22 12/26/22 12:46 Patient Tobacco Use Status Former Tobacco user 12/26/22 13:22 Tobacco use type Cigarette 12/26/22 13:22 e-Cigarette/Vaping Use Never Used 12/26/22 13:22 PHQ-9: PHQ-9 Score PHQ-9: Total score 0 12/26/22 13:46 Depression Screening Interpretation: Negative Thrive Assessment: Date of Thrive Assessment Date Thrive assessed 06/15/22 12/26/22 12:46 Const General: No confusion Orientation/consciousness: No confusion HENMT Head: Yes normocephalic Ears: external ears normal and TM's normal bilaterally Face and sinus: Yes normal facial exam Mouth: moist mucous membranes Throat: Yes tonsils normal Eyes Conjunctivae: conjunctivae normal Pupils: Equal, round and reactive pupils present and Pupil accommodation reflex normal Direct Ophthalmoscopy: normal light reflex Neck Neck: No lymphadenopathy Thyroid: Thyroid normal Chest Chest palpation & inspection: normal inspection of the chest Resp Effort & Inspection: normal respiratory effort and no audible wheezes Auscultation: clear to auscultation bilaterally, no crackles, no wheezes and lung sounds not diminished Cardio Rate: regular rate Rhythm: regular rhythm Peripheral pulses: radial pulses present and dorsalis pedis present GI Other: guaiac negative prostate N Palpation (GI): no masses Auscultation: normal bowel sounds and normoactive bowel sounds Male General Exam: Yes normal external exam Skin General skin exam: no rashes or lesions noted Rashes: no rashes Neuro General: No confusion Cranial nerves: Yes Equal, round and reactive pupils present and Yes Normal hearing present Cognition (Neuro): normal cognition Gait exam (Neuro): Normal gait present Motor exam (neuro): 5/5 motor strength present throughout Deep tendon reflexes (DTR's): Right brachioradialis reflex intensity grade: 2+, Left brachioradialis reflex intensity grade: 2+, Right patellar reflex intensity grade: 2+ and Left patellar reflex intensity grade: 2+ Extrem General: No edema Office Procedures Flu Questionnaire Does the patient have a severe egg allergy?: No Does the patient have severe life threatening allergies?: No Does the patient have a fever or illness today?: No Has the patient ever had Guillain-[place] Syndrome?: No Has the patient ever had any past reaction to a flu shot?: No Immunizations flu vacc [id number] 6mos up(PF) 60 mcg(15 mcgx4)/0.5 mL IM syringe Performing Provider: Calos Salamanca MD Performing Location: [facility] Administered by: Yuliana Patel RN on 12/26/22 13:46 Dose Route Admin Location Dispensed Lot Number Expiration Date NDC Product Development Actuary 0.5 mL IM Left Deltoid 0.5 mL [id number] 08/12/23 56355-422-14 [employer] VIS Given Date VIS Provided VIS Publication Date 12/26/22 Single Vaccine 20 Eligibility Eligibility Date Funding Source Not [facility] Eligible 12/26/22 Private Assessment and Plan Assessment & Plan (1) Annual physical exam: Code(s): Z00.00 - Encounter for general adult medical examination without abnormal findings (2) Cholelithiasis: Code(s): K80.20 - Calculus of gallbladder without cholecystitis without obstruction Plan: Low-fat diet and patient knows to call if procedure to be done Orders: Orders Comprehensive Met. Panel Today K80.20 - Calculus of gallbladder without cholecystitis without obstruction Free T4 (Free Thyroxine) Today K80.20 - Calculus of gallbladder without cholecystitis without obstruction Lipid Panel Today E78.00 - Pure hypercholesterolemia, unspecified, K80.20 - Calculus of gallbladder without cholecystitis without obstruction Thyroid Stimulating Hormone Today K80.20 - Calculus of gallbladder without cholecystitis without obstruction Prostate Specific Antigen Scr Today K80.20 - Calculus of gallbladder without cholecystitis without obstruction Influenza [id number] Immunization Today Z23 - Encounter for immunization Complete Blood Count Auto Diff Today K80.20 - Calculus of gallbladder without cholecystitis without obstruction Vitamin B12 and Folate Today K80.20 - Calculus of gallbladder without cholecystitis without obstruction Coding Level of Care Code Est Pt Prev Care 40-64y(53964) Diagnoses Annual physical exam Z00.00 Cholelithiasis K80.20
--- NOTE | 2022-12-26 13:46 | AM.OFFVISNUR ---
Intake Vital Signs 12/26/22 12:45 Height 6 ft 1 in Weight 188 lb BMI 24.8 BP 100/56 L Blood Pressure Location Lt brachial Position Sitting Pulse 73 Pulse Source Pulse Oximeter Pulse Oximetry (%) 99 Oxygen Delivery Method Room Air Intake Visit Reasons: Annual exam Allergies No Known Allergies [No Known Allergies*] Allergy (Verified 12/26/22 12:46) Medication List - Last Reconciled 12/26/22 by Calos Salamanca MD No Known Home Meds Office Procedures Flu Questionnaire Does the patient have a severe egg allergy?: No Does the patient have severe life threatening allergies?: No Does the patient have a fever or illness today?: No Has the patient ever had Guillain-[place] Syndrome?: No Has the patient ever had any past reaction to a flu shot?: No Immunizations flu vacc [id number] 6mos up(PF) 60 mcg(15 mcgx4)/0.5 mL IM syringe Performing Provider: Calos Salamanca MD Performing Location: [facility] Administered by: Yuliana Patel RN on 12/26/22 13:46 Dose Route Admin Location Dispensed Lot Number Expiration Date NDC Mechanical Engineering Specialist 0.5 mL IM Left Deltoid 0.5 mL [id number] 08/12/23 06049-968-47 [email or web address] VIS Given Date VIS Provided VIS Publication Date 12/26/22 Single Vaccine 20 Eligibility Eligibility Date Funding Source Not [facility] Eligible 12/26/22 Private Coding Diagnoses Annual physical exam Z00.00 Cholelithiasis K80.20 Assessment & Plan Assessment & Plan (1) Annual physical exam: Code(s): Z00.00 - Encounter for general adult medical examination without abnormal findings (2) Cholelithiasis: Code(s): K80.20 - Calculus of gallbladder without cholecystitis without obstruction Orders: Orders Comprehensive Met. Panel Today K80.20 - Calculus of gallbladder without cholecystitis without obstruction Free T4 (Free Thyroxine) Today K80.20 - Calculus of gallbladder without cholecystitis without obstruction Lipid Panel Today E78.00 - Pure hypercholesterolemia, unspecified, K80.20 - Calculus of gallbladder without cholecystitis without obstruction Thyroid Stimulating Hormone Today K80.20 - Calculus of gallbladder without cholecystitis without obstruction Prostate Specific Antigen Scr Today K80.20 - Calculus of gallbladder without cholecystitis without obstruction Influenza [id number] Immunization Today Z23 - Encounter for immunization Complete Blood Count Auto Diff Today K80.20 - Calculus of gallbladder without cholecystitis without obstruction Vitamin B12 and Folate Today K80.20 - Calculus of gallbladder without cholecystitis without obstruction
== END 2022-12-26 13:50 | disposition home or self-care (01) ==
PROVIDERS: Visit Provider Internal Medicine
DX: Z00.00 Encounter for general adult medical examination without abnormal findings (principal); K80.20 Calculus of gallbladder without cholecystitis without obstruction; Z23 Encounter for immunization
CPT/HCPCS: 90471; 90686; 99396

== ENCOUNTER 2023-05-17 15:10 | Emergency (ER) | payer BC, SELFPAY ==
--- NOTE | ~2023-05-17 | US_ITS ---
EXAMINATION: US ABDOMEN LIMITED CLINICAL INFORMATION: Right upper quadrant pain. COMPARISON: Abdominal ultrasound 05/28/2022 TECHNIQUE: Real-time imaging of the right upper quadrant abdominal viscera. FINDINGS: PANCREAS: Normal head and body, tail is obscured by bowel gas. The pancreatic duct measures 0.3 cm in the proximal body of the pancreas. LIVER: Normal. The liver is normal in size. The liver contour is normal. Parenchymal echogenicity is normal. No focal hepatic lesion. There is no intrahepatic biliary duct dilatation seen. GALLBLADDER: The gallbladder is physiologically distended. Multiple mobile gallstones are present. The largest gallstones measure 1.8 x 1.9 x 1.6 cm and 1.2 x 1.7 x 1.1 cm. No evidence of gallbladder wall thickening or pericholecystic fluid. The patient reports tenderness during scanning over the gallbladder, however, there is no convincing evidence of cholecystitis. COMMON BILE DUCT: Normal in caliber measuring 0.5 cm in diameter. RIGHT KIDNEY: Normal. No hydronephrosis. No renal calculi or focal parenchymal lesions. The kidney measures 10.3 cm in maximum dimension. FREE FLUID: None. US/US abdomen limited IMPRESSION: Cholelithiasis. The patient reports tenderness during scanning over the gallbladder, however, there is no convincing evidence of cholecystitis.
[2023-05-17 15:15] VITALS: BP 122/65; PULSE 60; RESP 16; TEMP 36.6; O2SAT 100; BMI 25.0
--- NOTE | 2023-05-17 15:15 | ED_ITS ---
HPI - Abdominal Pain General Chief Complaint: Abdominal Pain Stated Complaint: abd pain ? gallbladder Time Seen by Provider: 05/17/23 16:47 Source: patient Mode of arrival: ambulatory Limitations: no limitations History of Present Illness HPI narrative: 58 yold male with pmh of Lumbar disc disease and Biliary Colic presents to the ED for RUQ pain that began last night. Patient states symptoms started after eating popye chicken. Patient states pain level is a 6. Patient denies chest pain, shortness of breath, dysuria, hematuria, flank pain, fever, or chills Related Data Previous Rx's ?Medication ?Instructions ?Recorded naproxen 500 mg tablet 500 mg PO BID PRN pain 7 days #14 05/17/23 tabs oxycodone 5 mg capsule 5 mg PO Q8H PRN pain 3 days #9 caps 05/17/23 Allergies Allergy/AdvReac Type Severity Reaction Status Date / Time No Known Allergies Allergy Verified 05/17/23 15:19 [No Known Allergies*] Review of Systems Review of Systems Right upper quadrant abdominal pain since last night Yes all other systems are reviewed and are negative [facility] Past Medical History Medical History (Updated 05/17/23 @ 17:42 by JOSE DAVID Walter) Annual physical exam Colon cancer screening Erectile dysfunction Surgical History No pertinent past surgical history Family History Family History Father Pancreatic cancer Hx of CABG Social History Social History (Updated 12/26/22 @ 13:22 by Calos Salamanca MD) Household Members: Spouse and Children Housing: House Do you presently have visiting nurse or other home services: No Alcohol intake: current Alcohol intake frequency: holidays/special occasions only Patient Tobacco Use Status: Former Tobacco user Quit Date: 15 yr ago Tobacco use type: Cigarette Years Smoked: quit 2011 e-Cigarette/Vaping Use: Never Used Second Hand Smoke Exposure: No Substance Use Type: Marijuana service: No Current occupational status: employed Cognitive needs: No Hearing needs: No Vision needs: Yes Physical Exam ED Vital Signs: Vital Signs - 24 hr 05/17/23 15:15 Temperature 97.9 F Pulse Rate 60 Respiratory Rate 16 Blood Pressure 122/65 Pulse Oximetry 100 Oxygen Delivery Method Room Air BMI result Body Mass Index 25.0 Const General: cooperative, healthy appearing, comfortable, no acute distress, well developed, alert, awake and Physically active Orientation/consciousness: oriented to person, oriented to place, oriented to time and patient oriented x3 HENMT Head: Yes normal to inspection, Yes No palpable skull fracture present, Yes normocephalic, Yes atraumatic and No abrasion Eyes General: appearance normal, both eyes and all related structures Neck Neck: Yes normal visual inspection, Yes full ROM, Yes no lymphadenopathy, Yes no meningeal signs, Yes trachea midline, Yes supple, No anterior neck swelling and No tender Chest Chest palpation & inspection: normal inspection of the chest and normal palpation of entire chest wall Resp Effort & Inspection: normal respiratory effort and able to speak in complete sentences Auscultation: clear to auscultation bilaterally Cardio Jugular venous distension: no JVD Heart sounds: S1 normal heart sound present and S2 normal heart sound present GI Inspection: Yes normal to inspection Palpation (GI): Soft to palpation, not firm, Tenderness to palpation present (GI) in the RUQ; not in the epigastrum, not in the LLQ, not in the RLQ, not in the LUQ, not at McBurney's point, not periumbilically, not suprapubicly, Gross's sign negative, obturator sign negative, psoas sign negative, with no rebound tenderness and Rovsing's sign negative, no guarding and not rigid General: No CVA tenderness and Yes no CVA tenderness Back/Spine/Pelvis Back: no CVA tenderness, No CVA tenderness and No back tenderness Skin General skin exam: no rashes or lesions noted, elasticity normal and turgor normal Neuro General: oriented to person, oriented to place, oriented to time, patient oriented x3, gait normal, tone normal, moves all extremities, Normal light touch and pain sensation, no meningeal signs, no focal motor deficits, CN's II-XI intact bilaterally and normal sensation to monofilament Extrem General: Yes normal to inspection, Yes full ROM and Yes capillary refill normal Psych Appearance: grossly normal, well kempt and not disheveled Course Course Course Narrative: RME:?58 yo male w/ hx of cholelithiasis and biliary colic here for eval of right upper quadrant pain that began acutely around midnight last night. states it feels like his gallbladder pain. admits pain began a few hours after eating dinner. Reports following up with general surgery (Dr. Kay) in June of 2022 and opted out of surgery as his symptoms had resolved, until last night. Denies fever, chills, nausea, vomiting, diarrhea. labs, US ordered. Full HPI, ROS and PE to be performed by the primary ED provider. Medical Decision Making Medical Decision Making MDM Narrative: 58-year-old male with history of biliary colic presents ED for right upper quadrant pain. Patient denies any fever or chills. Patient has normal LFTs. Ultrasound shows cholelithiasis without cholecystitis. Negative Gross sign exam. White blood cell count only 12,000. Pain level only 6 and resolved after pain meds.. Patient is safe for discharge. No emergent surgery needed. No need for surgery consult or surgical intervention. Patient informed his ICD follow-up with outpatient surgery clinic for re-evaluation and can schedule possible elective surgery. Patient explained worrisome sign informed to return to the ED if he has them. Differential Diagnosis Differential Diagnoses: The differential diagnosis associated with the presentation includes (Pancreatitis, cholecysitis, gallstones, ) Admission/Observation Consideration of admission/observation: Escalation of care including admission/observation considered Lab Data [facility] Lab Attestation statement: I reviewed the patient's lab results. 05/17/23 15:24 05/17/23 15:24 Labs: Lab Results 05/17/23 Range/Units 15:24 WBC 12.9 H (4.8-10.8) X10*3/uL RBC 5.21 (4.60-5.80) X10*6/uL Hgb 15.9 (14.0-18.0) g/dl Hct 46.7 (42.0-52.0) % MCV 89.6 (80.0-98.0) fL MCH 30.5 (27.0-33.0) pg MCHC 34.0 (31.0-36.0) g/dl RDW 13.3 (11.0-16.0) % Plt Count 254 (160-400) X10*3/uL MPV 9.0 L (9.4-12.4) fL Immature Gran % (Auto) 0.2 (0.0-0.4) % Neut % (Auto) 81.8 H (45-73) % Lymph % (Auto) 9.4 L (20-40) % [place] % (Auto) 8.2 (2-11) % Eos % (Auto) 0.1 (0-4) % Baso % (Auto) 0.3 (0-2) % Lymph # (Auto) 1.2 (1.2-4.9) X10*3/uL [place] # (Auto) 1.1 (0.1-1.2) X10*3/uL Eos # (Auto) 0.0 (0.0-0.4) X10*3/uL Baso # (Auto) 0.0 (0.0-0.2) X10*3/uL Abs Immat Gran (auto) 0.03 (0.00-0.03) X10*3/uL Absolute Neuts (auto) 10.5 H (2.0-8.3) x10*3/uL Absolute Nucleated RBC 0.000 (0.0-0.012) X10*3/uL Nucleated RBC % (auto) 0.0 (0.0-0.2) /100WBC Sodium 137 (135-145) mmol/L Potassium 4.4 (3.3-5.1) mmol/L Chloride 104 (96-108) mmol/L Carbon Dioxide 26 (22-29) mmol/L Anion Gap 11 L (12-20) BUN 9 (9-16) mg/dL Creatinine 0.98 (0.5-1.4) mg/dL Estim Creat Clear Calc 93.9 Estimated GFR > 60 Random Glucose 131 H (60-115) mg/dL Calcium 9.3 D (8.4-10.2) mg/dL Magnesium 2.1 (1.6-2.6) mg/dL Total Bilirubin 0.7 (0.0-1.0) mg/dL AST 29 (5-37) U/L ALT 17 (0-40) U/L Alkaline Phosphatase 103 (39-117) U/L Total Protein 7.4 (6.5-8.0) g/dL Albumin 4.3 (3.5-5.0) g/dL Lipase 20 (8-78) U/L Independent Interpretation I performed an independent interpretation of an: Ultrasound Radiology Impression Discussion of test interpretation with radiology: I have reviewed the radiologist's reading. External Record Review External record reviewed: Other (Prior visits) Prescription Management I considered prescription management with: Pain Medication Medications Administered Discontinued Medications Generic Name Dose Route Start Last Admin Trade Name Freq PRN Reason Stop Dose Admin Morphine Sulfate 4 mg 05/17/23 17:01 05/17/23 17:17 Morphine Sulfate 4 Mg/Ml Cartridge IM 05/17/23 17:02 4 mg ONCE ONE Administration Protocol Discharge Plan Discharge Clinical Impression: Cholelithiasis Patient Disposition: Home, Self-Care Instructions: Gallstones (ED) Additional Instructions: Your ultrasound shows gallstones without cholecystitis. You will need follow-up with outpatient surgery. Return to the ED immediately for worsening abdominal pain, nausea, vomiting, fever, chills, flank pain, chest pain, shortness of breath, diarrhea, inability tolerate solid food/liquid, or any other concerning symptoms. Prescriptions: New naproxen 500 mg tablet 500 mg PO BID PRN (Reason: pain) 7 Days Qty: 14 0RF oxycodone 5 mg capsule 5 mg PO Q8H PRN (Reason: pain) 3 Days Qty: 9 0RF Rx Instructions: Partial Fill upon patient request. Side effect is drowsiness. Do not take at work or while driving. Referrals: [facility] General Surgeons [Provider Group] (Gallstones) Stand Alone Forms: Work/School Release Interventions: ED Discharge Assessment Last Done: 05/17/23 17:54 Discharge Date/Time: 05/17/23 17:55 Print Language: Polish
[2023-05-17 15:29] LABS: MANUAL DIFF FLAG NO
[2023-05-17 15:32] LABS: Basophils Percent Auto 0.3 % (0-2); Eosinophils Percent Auto 0.1 % (0-4); Hematocrit 46.7 % (42.0-52.0); Hemoglobin 15.9 g/dl (14.0-18.0); Imm Gran Abs Auto 0.03 X10*3/uL (0.00-0.03); Imm Gran Pct Auto 0.2 % (0.0-0.4); Lymphocytes Absolute Auto 1.2 X10*3/uL (1.2-4.9); Lymphocytes Percent Auto 9.4 % (20-40); Mean Corpuscular Hemoglobin 30.5 pg (27.0-33.0); Mean Corpuscular Volume 89.6 fL (80.0-98.0); Monocytes Absolute Auto 1.1 X10*3/uL (0.1-1.2); Monocytes Percent Auto 8.2 % (2-11); Neutrophils Absolute Auto 10.5 x10*3/uL (2.0-8.3); Neutrophils Percent Auto 81.8 % (45-73); Platelet Count 254 X10*3/uL (160-400); Red Blood Count 5.21 X10*6/uL (4.60-5.80); Red Cell Distribution Width 13.3 % (11.0-16.0); White Blood Count 12.9 X10*3/uL (4.8-10.8)
[2023-05-17 15:44] LABS: Alanine Aminotransferase 17 U/L (0-40); Albumin Level 4.3 g/dL (3.5-5.0); Alkaline Phosphatase 103 U/L (39-117); Anion Gap 11 (12-20); Aspartate Amino Transferase 29 U/L (5-37); Bilirubin Total 0.7 mg/dL (0.0-1.0); Blood Urea Nitrogen 9 mg/dL (9-16); Calcium 9.3 mg/dL (8.4-10.2); Carbon Dioxide 26 mmol/L (22-29); Chloride 104 mmol/L (96-108); Creatinine Clr Calc Pharmacy 93.9; Estimated Glomerular Filt Rate > 60; Glucose Random 131 mg/dL (60-115); Lipase 20 U/L (8-78); Magnesium 2.1 mg/dL (1.6-2.6); Potassium 4.4 mmol/L (3.3-5.1); Sodium 137 mmol/L (135-145); Total Protein 7.4 g/dL (6.5-8.0)
[2023-05-17] MEDS: Morphine Sulfate 4 MG/ML CARTRIDGE IM (17:17)
[2023-05-17 17:54] VITALS: BP 122/65; PULSE 60; RESP 16; TEMP 36.6; O2SAT 100
== END 2023-05-17 17:55 | disposition home or self-care (01) ==
PROVIDERS: Physician Assistant Medical; Emergency Provider Emergency Medicine; PCP Internal Medicine
DX: K80.20 Calculus of gallbladder without cholecystitis without obstruction (principal); R10.11 Right upper quadrant pain; Z79.899 Other long term (current) drug therapy
CPT/HCPCS: 36415; 76705; 80053; 83690; 83735; 85025; 96372; 99282; 99284; J2270

== ENCOUNTER 2023-05-21 10:05 | Outpatient (AMB) | payer BC, SELFPAY ==
--- NOTE | 2023-05-21 10:14 | MHC.OFFVIS ---
Intake Vital Signs 05/21/23 10:17 Height 6 ft 1 in Weight 188 lb BMI 24.8 BP 118/75 Blood Pressure Location Rt brachial Position Sitting Pulse 68 Intake Visit Reasons: Cholelithiasis Intake Note: Patient referred after ER visit on 05-17-23 Patient c/o: abd pain better since ER visit Abd US: 05-17-23. 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 He has had 2 visits to the ER with the last year both demonstrating cholelithiasis on sonogram. Because of persistence of symptoms, patient would like to pursue surgical intervention. He is otherwise tolerating his diet. He is having regular bowel habits. Never been jaundiced before. Chart was reviewed and patient evaluated [facility] Medical History Annual physical exam Colon cancer screening Erectile dysfunction Surgical History (Updated 05/21/23 @ 10:45 by Manolo Isabel MD) H/O vasectomy No pertinent past surgical history Family History Father Pancreatic cancer Hx of CABG Social History (Updated 05/21/23 @ 10:20 by ANICETO Ramon) Household Members: Spouse and Children Housing: House Do you presently have visiting nurse or other home services: No Alcohol intake: current Alcohol intake frequency: holidays/special occasions only Alcohol type: beer Patient Tobacco Use Status: Former Tobacco user Quit Date: 15 yr ago Tobacco use type: Cigarette Years Smoked: quit 2011 e-Cigarette/Vaping Use: Never Used Second Hand Smoke Exposure: No Substance Use Type: Marijuana service: No Current occupational status: employed Cognitive needs: No Hearing needs: No Vision needs: Yes Physical Exam Vital Signs: Last Vital Signs Pulse 68 05/21/23 10:17 BP 118/75 05/21/23 10:17 BMI result Body Mass Index 24.8 Chest Other: Chest breath sounds bilaterally, HS 1 in 2 GI Other: Abdomen is soft, thin, benign Assessment & Plan Assessment & Plan (1) Cholelithiasis: Code(s): K80.20 - Calculus of gallbladder without cholecystitis without obstruction (2) Biliary colic: Code(s): K80.50 - Calculus of bile duct without cholangitis or cholecystitis without obstruction Plan Risks, benefits, and alternatives laparoscopic possible open cholecystectomy reviewed the patient included but not limited to bleeding, infection, recurrence of symptoms, numbness, pain, scarring, bowel or bile duct injury or leak and the patient wished to proceed. All questions answered. Arrangements were made for this. Coding Level of Care Code New Pt Level 5 (93789) Diagnoses Cholelithiasis K80.20 Biliary colic K80.50
[2023-05-21 10:17] VITALS: BP 118/75; PULSE 68; BMI 24.8
== END 2023-05-21 10:31 | disposition home or self-care (01) ==
PROVIDERS: PCP Internal Medicine; Visit Provider Surgery
DX: K80.20 Calculus of gallbladder without cholecystitis without obstruction (principal); K80.50 Calculus of bile duct without cholangitis or cholecystitis without obstruction
CPT/HCPCS: 99204

== ENCOUNTER → 2023-05-21 10:05 | Outpatient (BNVA) | payer BC, SELFPAY | PROVIDERS: PCP Internal Medicine; Visit Provider Surgery ==

== ENCOUNTER 2023-06-08 07:44 | Day surgery (SDC) | payer BC, SELFPAY ==
[2023-06-06 11:45] VITALS: BMI 24.8
--- NOTE | 2023-06-07 10:14 | MHC.SHP ---
Pre-Procedural Eval Section A - 24 Hr Update-Section A only Date of Service: 06/07/23 The patient is an INPATIENT: No Changes since office visit: No Cold of Flu in the past 2 weeks, No New Medical Problems, No Changes in Medication and No Patient answered all questions Section B - Complete if H&P > 30 days Chief Complaint: Calculus of gallbladder and bilew/o cholecystitis, Allergies: Allergies Allergy/AdvReac Type Severity Reaction Status Date / Time No Known Allergies Allergy Verified 05/21/23 10:21 [No Known Allergies*] Plan I have reviewed the history and physical and performed a pertinent physical examination on my patient. No changes have occurred unless specified. Time Spent With Patient Time: Total time managing care of this patient today ____ minutes.
[2023-06-08] VITALS (9 sets, daily range): BP systolic 115–146; BP diastolic 60–81; PULSE 50–77; RESP 16–18; TEMP 36.1–36.5; O2SAT 95–100; BMI 24.7
--- NOTE | 2023-06-08 09:30 | HO.ANESPROP2 ---
Documented by User: Eva Pascal NP 06/06/23 14:22 HPI - Anesthesia Eval Consult details Narrative: 58yo M for Cholecystectomy Laparoscopic,possible open PMFSH Active Problems Active Problems: All Active Problems Cholelithiasis (Acute) Annual physical exam (Acute) Biliary colic (Acute) Peyronie's disease (Acute) Peripheral neuropathy (Acute) Lumbar degenerative disc disease (Acute) COVID-19 virus infection (Acute) Colon cancer screening (Acute) History of tobacco abuse (Acute) Colonoscopy refused (Acute) Tinea pedis (Acute) Erectile dysfunction (Acute) Past Medical History Medical History Annual physical exam Colon cancer screening Erectile dysfunction Family History Family History Father Pancreatic cancer Hx of CABG Family history of problems with anesthesia: No Surgical History Surgical History (Updated 06/08/23 @ 08:54 by Niurka Colvin) History of genitourinary surgery H/O vasectomy History of Problems with Anesthesia: No Social History Social History (Updated 05/21/23 @ 10:20 by ANICETO Ramon) Household Members: Spouse and Children Housing: House Do you presently have visiting nurse or other home services: No Alcohol intake: current Alcohol intake frequency: a few times a month Alcohol type: beer Patient Tobacco Use Status: Former Tobacco user Quit Date: 2008 Tobacco use type: Cigarette Years Smoked: 15 Smoked in Last 30 Days: No e-Cigarette/Vaping Use: Never Used Second Hand Smoke Exposure: No Use of substances other than those prescribed or required for medical reasons: Yes Substance Use Type: Marijuana Substance Use Frequency: Daily Are you DNR?: No Advance Directives: No Advance Directives Information Provided: Yes service: No Current occupational status: employed Cognitive needs: No Hearing needs: No Vision needs: Yes Meds Allergies Allergy/AdvReac Type Severity Reaction Status Date / Time No Known Allergies Allergy Verified 06/08/23 08:50 [No Known Allergies*] Exam Height,Weight and Vital Signs: Height 6 ft 1 in Weight 85.275 kg Pertinent Lab Results Pertinent Lab Results: Laboratory Tests 05/17/23 15:24 WBC 12.9 H Hgb 15.9 Hct 46.7 Plt Count 254 Sodium 137 Potassium 4.4 Chloride 104 Carbon Dioxide 26 BUN 9 Creatinine 0.98 Narrative Narrative: EKG 2022 Vent. Rate : 063 BPM Atrial Rate : 063 BPM P-R Int : 116 ms QRS Dur : 086 ms QT Int : 390 ms P-R-T Axes : 048 048 047 degrees QTc Int : 399 ms Sinus rhythm with occasional Premature ventricular complexes Otherwise normal ECG When compared with ECG of 10-AUG-2007 16:50, Premature ventricular complexes are now Present Assessment and Plan Assessment Anesthesia Assessment: Chart Reviewed Final Anesthetic Review Family History of Problems with Anesthesia: No History of Problems with Anesthesia: No Documented by User: July Magaña DO 06/08/23 09:36 PMF Past Medical History Medical History Annual physical exam Colon cancer screening Erectile dysfunction Family History Family History Father Pancreatic cancer Hx of CABG Family history of problems with anesthesia: No Surgical History Surgical History (Updated 06/08/23 @ 08:54 by Niurka Colvin) History of genitourinary surgery H/O vasectomy History of Problems with Anesthesia: No Social History Social History (Updated 05/21/23 @ 10:20 by ANICETO Ramon) Household Members: Spouse and Children Housing: House Do you presently have visiting nurse or other home services: No Alcohol intake: current Alcohol intake frequency: a few times a month Alcohol type: beer Patient Tobacco Use Status: Former Tobacco user Quit Date: 2008 Tobacco use type: Cigarette Years Smoked: 15 Smoked in Last 30 Days: No e-Cigarette/Vaping Use: Never Used Second Hand Smoke Exposure: No Use of substances other than those prescribed or required for medical reasons: Yes Substance Use Type: Marijuana Substance Use Frequency: Daily Are you DNR?: No Advance Directives: No Advance Directives Information Provided: Yes service: No Current occupational status: employed Cognitive needs: No Hearing needs: No Vision needs: Yes Meds Allergies Allergy/AdvReac Type Severity Reaction Status Date / Time No Known Allergies Allergy Verified 06/08/23 08:50 [No Known Allergies*] Exam Exam Date and Time: June 08, 2023 0930 Height,Weight and Vital Signs: Height 6 ft 1 in Weight 85.275 kg Vital Signs Temperature 97.4 F 06/08/23 08:55 Pulse Rate 65 06/08/23 08:55 Respiratory Rate 16 06/08/23 08:55 Blood Pressure 115/65 06/08/23 08:55 Pulse Oximetry 97 06/08/23 08:55 Oxygen Delivery Method Room Air 06/08/23 08:55 Temperature 97.4 F 06/08/23 08:55 Pulse Rate 65 06/08/23 08:55 Respiratory Rate 16 06/08/23 08:55 Blood Pressure 115/65 06/08/23 08:55 Pulse Oximetry 97 06/08/23 08:55 Oxygen Delivery Method Room Air 06/08/23 08:55 Airway Mallampati Class: I TM Dist: >3cm Neck ROM: Full Loose/Missing/Broken Teeth: Yes (edentulous) Heart: S1S2 Lungs: CTAB Assessment and Plan Assessment Anesthesia Assessment: Anesthesia Plan Discussed and Chart Reviewed Final Anesthetic Review Family History of Problems with Anesthesia: No History of Problems with Anesthesia: No NPO: Yes ASA Class: II Final Preanesthetic Review: No Changes in Pt Med Stat, Meds/Allgs Chart Reviewed, Consent Obtained/Reviewed and Anes Risks/Benef Reviewed Patient Risk: Low Procedure Risk: Low Anesthetic Plan Anesthetic Plan: GA and Agree w/ Assess. and Plan Disposition: Standard PACU
[2023-06-08] MEDS: Lactated Ringers 1,000 ML 100 ML IVCONT (10:22)
--- NOTE | 2023-06-08 10:59 | P.OP_ITS ---
Operative Note Operative Note Date of Service: 06/08/23 Narrative: Preoperative diagnosis: [] Symptomatic gallbladder, incidental umbilical hernia Postop diagnosis: [], the same Procedure [] 1. Laparoscopic cholecystectomy 2. Repair of umbilical hernia Surgeon: [] [facility] Doctor: [] Bernardino Type of Anesthesia: [] General Indication for surgery: [] 1. Gallbladder markedly thickened with omental adhesions. Significantly intrahepatic gallbladder. 2. Proximally 2 cm reduc ible umbilical hernia with omental contents Patient required umbilical port and the umbilical hernia site was used for this and was closed primarily at completion of the procedure. Findings: [] Patient is brought to the operating room, placed on operative table in supine position, after an adequate level of general anesthesia was induced, the patient's abdomen was prepped and draped in usual sterile fashion. Using an infraumbilical curvil inear incision which was the site of the umbilical hernia, this carried down through skin, subcutaneous tissue, where hernia sac was circumferentially dissected out and opened. Omental contents were reduced. Hernia sac was amputated. Levi technique was used to insufflate abdominal cavity through this hernia site to 15 mm of CO2. Upper midline and right subcostal ports Were placed under direct laparoscopic view, and the placed in placed in reverse Trendelenburg position, and tilted to the left. Findings were as noted above. Gallbladder was grasped using laparoscopic graspers, and retracted superiorly and laterally. Omental adhesions swept off the gallbladder with the hilum was approached. Cystic artery and cystic duct were identified, circumferentially skeletonized, traced directly into the gallbladder, and critical view obtained. Each was clipped proximally x2, distally x1, and transected. Gallbladder which was very thickened and intrahepatic was then cauterized from the gallbladder fossa using Bovie. Specimen was placed in an Endo-Catch bag, a retrieved through the umbilical port. Abdominal cavity was copiously irrigated, and secured hemostasis. All ports removed under direct laparoscopic view. Wounds were closed in the following manner; umbilical wound which was the site of the hernia was closed primarily using interrupted 0 Vicryl sutures. Skin wounds were closed using subcuticular 4-0 Vicryl sutures followed by Steri-Strips and sterile dressings. Wounds were infiltrated 0.5% Marcaine at completion. Sponge, needle, and instrument counts reported correct. Patient tolerated the procedure well and emerged from anesthesia stable condition. EBL minimal
[2023-06-08] MEDS: Haloperidol Lactate 5 MG/ML VIAL 1 MG IVPUSH (11:54)
[2023-06-08] MEDS: Ondansetron ODT 4 MG TAB.RAPDIS TRANSLINGU (12:39)
== END 2023-06-08 13:00 | disposition home or self-care (01) ==
PROVIDERS: PCP Internal Medicine; Visit Provider Surgery
PROC: 0FT44ZZ Resection of Gallbladder, Percutaneous Endoscopic Approach (ICD-10-PCS; CPT 47562; principal; 2023-06-08 09:30)
DX: K80.10 Calculus of gallbladder with chronic cholecystitis without obstruction (principal); K82.8 Other specified diseases of gallbladder; Q44.1 Other congenital malformations of gallbladder; K42.9 Umbilical hernia without obstruction or gangrene; N52.9 Male erectile dysfunction, unspecified; Z98.52 Vasectomy status; Z87.891 Personal history of nicotine dependence; Z90.49 Acquired absence of other specified parts of digestive tract
CPT/HCPCS: 47562; 49591; 88304; J0131; J0690; J1100; J1170; J1630; J1885; J2405; J2704; J2795; J3010

== ENCOUNTER → 2023-06-08 07:44 | Outpatient (BNV) | payer BC, SELFPAY | PROVIDERS: PCP Internal Medicine; Visit Provider Surgery | DX: K80.50 Calculus of bile duct without cholangitis or cholecystitis without obstruction (principal); K50.80 Crohn's disease of both small and large intestine without complications; K42.9 Umbilical hernia without obstruction or gangrene | CPT/HCPCS: 47562 ==

== ENCOUNTER 2023-06-18 13:52 | Outpatient (AMB) | payer BC, SELFPAY ==
--- NOTE | 2023-06-18 13:58 | MHC.OFFVIS ---
Intake Visit Reasons: S/P lap clark Intake Note: Patient here s/p lap clark and umbilical hernia repair. Reports incisions healing well. Patient c/o: no longer taking rx pain meds. SX: 06-08-23. 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 He has no wound issues or complaints. He has tolerating a diet. Having regular bowel habits. He is increasing his activity level [facility] Medical History Umbilical hernia (06/08/23) Annual physical exam Colon cancer screening Erectile dysfunction Surgical History History of laparoscopic cholecystectomy (06/08/23) History of genitourinary surgery H/O vasectomy Family History Father Pancreatic cancer Hx of CABG Social History Household Members: Spouse and Children Housing: House Do you presently have visiting nurse or other home services: No Alcohol intake: current Alcohol intake frequency: a few times a month Alcohol type: beer Comment: counts correct Patient Tobacco Use Status: Former Tobacco user Quit Date: 2008 Tobacco use type: Cigarette Years Smoked: 15 e-Cigarette/Vaping Use: Never Used Second Hand Smoke Exposure: No Substance Use Type: Marijuana service: No Current occupational status: employed Cognitive needs: No Hearing needs: No Vision needs: Yes Physical Exam Eyes Other: Anicteric GI Other: Abdomen is soft, benign. All wounds clean dry and intact Assessment & Plan Assessment & Plan (1) Status post laparoscopic cholecystectomy: Code(s): Z90.49 - Acquired absence of other specified parts of digestive tract Category: Medical Plan Patient has no light duty this placed of employment. We will give him a work note for 2 weeks off and then he can resume work. If he needs more time off he will contact the office. All questions answered. Patient will otherwise follow-up p.r.n.. Coding Level of Care Code Global (55519) Diagnoses Status post laparoscopic cholecystectomy Z90.49
== END 2023-06-18 14:06 | disposition home or self-care (01) ==
PROVIDERS: PCP Internal Medicine; Visit Provider Surgery
DX: Z90.49 Acquired absence of other specified parts of digestive tract (principal)
CPT/HCPCS: 99024

== ENCOUNTER → 2023-06-18 13:52 | Outpatient (BNVA) | payer BC, SELFPAY | PROVIDERS: PCP Internal Medicine; Visit Provider Surgery ==

== ENCOUNTER 2024-05-09 07:48 | Outpatient (REF) | payer BC, SELFPAY ==
[2024-05-09 09:38] LABS: MANUAL DIFF FLAG NO
[2024-05-09 09:55] LABS: Basophils Absolute Auto 0.1 X10*3/uL (0.0-0.2); Basophils Percent Auto 0.9 % (0-2); Eosinophils Absolute Auto 0.4 X10*3/uL (0.0-0.4); Eosinophils Percent Auto 5.3 % (0-4); Hematocrit 42.7 % (42.0-52.0); Hemoglobin 14.6 g/dl (14.0-18.0); Imm Gran Abs Auto 0.03 X10*3/uL (0.00-0.03); Imm Gran Pct Auto 0.4 % (0.0-0.4); Lymphocytes Percent Auto 25.2 % (20-40); Mean Corpuscular HGB Conc 34.2 g/dl (31.0-36.0); Mean Corpuscular Hemoglobin 30.4 pg (27.0-33.0); Mean Corpuscular Volume 88.8 fL (80.0-98.0); Mean Platelet Volume 9.1 fL (9.4-12.4); Monocytes Absolute Auto 0.7 X10*3/uL (0.1-1.2); Neutrophils Absolute Auto 4.6 x10*3/uL (2.0-8.3); Neutrophils Percent Auto 59.2 % (45-73); Platelet Count 220 X10*3/uL (160-400); Red Blood Count 4.81 X10*6/uL (4.60-5.80); Red Cell Distribution Width 13.4 % (11.0-16.0); White Blood Count 7.8 X10*3/uL (4.8-10.8)
[2024-05-09 10:20] LABS: Alanine Aminotransferase 9 U/L (0-40); Albumin Level 4.1 g/dL (3.5-5.0); Alkaline Phosphatase 83 U/L (39-117); Anion Gap 8 (12-20); Aspartate Amino Transferase 22 U/L (5-37); Bilirubin Total 0.7 mg/dL (0.0-1.0); Blood Urea Nitrogen 12 mg/dL (9-16); Calcium 8.6 mg/dL (8.4-10.2); Carbon Dioxide 28 mmol/L (22-29); Chloride 105 mmol/L (96-108); Cholesterol 167 mg/dL (<200); Estimated Glomerular Filt Rate > 60; Glucose Random 93 mg/dL (60-115); HDL Cholesterol 40 mg/dL (>40); LDL Cholesterol Calculated 100 mg/dL (<100); Potassium 4.3 mmol/L (3.3-5.1); Sodium 137 mmol/L (135-145); Total Protein 6.8 g/dL (6.5-8.0); Triglycerides 135 mg/dL (<150)
[2024-05-09 10:38] LABS: Prostate Specific Antigen Scr 1.45 ng/mL (<0.05-4.0); Vitamin B12 442 pg/mL (200-900)
[2024-05-09 10:39] LABS: Free T4 (Free Thyroxine) 0.96 ng/dL (0.71-1.85); Thyroid Stimulating Hormone 1.24 uIU/mL (0.32-4.0)
== END 2024-05-09 07:49 | disposition home or self-care (01) ==
LOC: HO.10HDL 07:48
PROVIDERS: Visit Provider Internal Medicine
DX: Z00.00 Encounter for general adult medical examination without abnormal findings (principal); K64.9 Unspecified hemorrhoids; N40.0 Benign prostatic hyperplasia without lower urinary tract symptoms; H61.23 Impacted cerumen, bilateral; E78.00 Pure hypercholesterolemia, unspecified; N52.9 Male erectile dysfunction, unspecified; Z12.5 Encounter for screening for malignant neoplasm of prostate
CPT/HCPCS: 36415; 80053; 80061; 82607; 82746; 84153; 84439; 84443; 85025; 96127

== ENCOUNTER 2024-05-09 11:20 | Outpatient (AMB) | payer BC, SELFPAY ==
--- NOTE | 2024-05-09 11:44 | A.OFFPC_ITS ---
Vital Signs 05/09/24 11:52 Height 6 ft 1 in Weight 181 lb BMI 23.9 BP 92/58 L Blood Pressure Location Lt brachial Position Sitting Pulse 67 Pulse Source Pulse Oximeter Temp 97.1 F Temp Source Temporal Artery Scan Pulse Oximetry (%) 98 Oxygen Delivery Method Room Air Intake Visit Reasons: PE Intake Note: Patient is here today for a physical. 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 Accompanied by: Self / Same As Patient Allergies No Known Allergies [No Known Allergies*] Allergy (Verified 05/09/24 11:44) Medication List - Last Reconciled 05/09/24 by Calos Salamanca MD Tobacco use date assessed: 05/09/24 Dental Screening Dental Screen Date: 05/09/24 Did you have a dental visit in the last 12 months?: Yes Did you have a dental problem in the last 6 months where you did not have access to dental care?: No Was dental information given to patient?: Patient has dentist [facility] Medical History Umbilical hernia (06/08/23) Annual physical exam Colon cancer screening Erectile dysfunction Surgical History History of laparoscopic cholecystectomy (06/08/23) History of genitourinary surgery H/O vasectomy Family History Father Pancreatic cancer Hx of CABG Social History (Updated 05/09/24 @ 12:24 by Calos Salamanca MD) Household Members: Spouse and Children Housing: House Do you presently have visiting nurse or other home services: No Alcohol intake: current Alcohol intake frequency: a few times a month Alcohol type: beer Comment: 2 beers a week Patient Tobacco Use Status: Former Tobacco user Tobacco use type: Cigarette Years Smoked: 15 e-Cigarette/Vaping Use: Never Used Second Hand Smoke Exposure: No Substance Use Type: Marijuana service: No Current occupational status: employed Cognitive needs: No Hearing needs: No Vision needs: Yes Questionnaire PHQ-9 Over the last 2 weeks, how often have you been bothered by any of the following problems? 1. Little interest or pleasure in doing things: not at all 2. Feeling down, depressed, or hopeless: not at all 3. Trouble falling or staying asleep, or sleeping too much: not at all 4. Feeling tired or having little energy: not at all 5. Poor appetite or overeating: not at all 6. Feeling bad about yourself - or that you are a failure or have let yourself or your family down: not at all 7. Trouble concentrating on things, such as reading the newspaper or watching television: not at all 8. Moving or speaking so slowly that other people could have noticed. Or the opposite - being so fidgety or restless that you have been moving around a lot more than usual: not at all 9. Thoughts that you would be better off or of hurting yourself in some way: not at all Total score: 0 Depression Screening Interpretation: Negative Depression Screening Done: Yes 01888 - PHQ-9 Billing: Yes Source: Developed by Drs. Edinson Sapp, Katharine Glover, Maxi Felder and colleagues, with an educational lisa from [employer]. Thrive Questionnaire Date Thrive assessed: 05/09/24 I am a: Patient What is your living situation today?: I have a steady place to live Within the past 12 months, did the food you bought not last and you didn't have the money to get more?: Sometimes True Within the past 12 months, did you worry whether your food would run out before you got money to buy more?: Never true Do you have trouble paying for medicines?: No Do you have trouble getting transportation to medical appointments?: No Do you have trouble paying your heating and electricity bill?: No Do you have trouble taking care of your child, family member or friend?: No Do you have trouble with day-to-day activities such as bathing, preparing meals, shopping, managing finances, etc.?: No Are you currently unemployed and looking for a job?: No Are you interested in more education?: No Please select the resources that you would like help with: None Currently or been in a relationship where the following occur: No concerns reported THRIVE Score: 1 AUDIT C Alcohol Use Questionnaire (AUDIT-C) 1. How often do you have a drink containing alcohol?: 2-4 times a month 2. How many drinks containing alcohol do you have on a typical day when you are drinking?: 3 or 4 3. How often do you have six or more drinks on one occasion?: Never Total Score: 3 JUDITH-7 AMB Questionnaire JUDITH-7 Date JUDITH - 7 assessed: 05/09/24 Feeling nervous, anxious, or on edge: 0 = Not at all Not being able to stop or control worryin = Not at all Worrying too much about different things: 0 = Not at all Trouble relaxin = Not at all Being so restless that it is hard to sit still: 0 = Not at all Becoming easily annoyed or irritable: 0 = Not at all Feeling afraid as if something awful might happen: 0 = Not at all Total JUDITH-7 score (0-4 normal; 5-9 mild; 10-14 moderate; 15-21 severe): 0 Source: Developed by Drs. Edinson Sapp, Katharine Glover, Maxi Felder and colleagues, with an educational lisa from [employer]. JUDITH-7 Assessment Billing JUDITH-7 Assessment Tool: JUDITH-7 Assessment 29309 Review of Systems Const Denies poor appetite and Denies weakness Eyes Denies no additional complaints ENT Reports Normal hearing present, Denies dizziness, Denies nasal congestion, Denies tinnitus and Denies sore throat Card Denies chest pain, Denies syncope, Denies rapid heart rate and Denies dyspnea Resp Denies cough and Denies dyspnea GI Denies change in stool character, Reports constipation, Denies diarrhea, Denies nausea and Denies vomiting Denies dysuria and Denies urinary frequency Neuro Reports Normal hearing present, Denies confusion, Denies dizziness, Denies syncope and Denies weakness Psych Denies confusion Physical exam (Primary Care) Vital Signs: Last Vital Signs Temp 97.1 F 05/09/24 11:52 Pulse 67 05/09/24 11:52 BP 92/58 L 05/09/24 11:52 Pulse Ox 98 05/09/24 11:52 Oxygen Delivery Method Room Air 05/09/24 11:52 BMI result Body Mass Index 23.9 Tobacco/Smoking Status: Tobacco use Status Tobacco use date assessed 05/09/24 05/09/24 11:56 Patient Tobacco Use Status Former Tobacco user 05/09/24 12:24 Tobacco use type Cigarette 05/09/24 12:24 e-Cigarette/Vaping Use Never Used 05/09/24 12:24 PHQ-9: PHQ-9 Score PHQ-9: Total score 0 05/09/24 12:20 Depression Screening Interpretation: Negative Thrive Assessment: Date of Thrive Assessment Date Thrive assessed 05/09/24 05/09/24 11:48 Currently or been in a relationship where the following occur: No concerns r eported Const General: No confusion Orientation/consciousness: No confusion HENMT Other: bilateral impacted cerumen Head: Yes normocephalic Ears: external ears normal Face and sinus: Yes normal facial exam Mouth: moist mucous membranes Throat: Yes tonsils normal Eyes Conjunctivae: conjunctivae normal Pupils: Equal, round and reactive pupils present and Pupil accommodation reflex normal Direct Ophthalmoscopy: normal light reflex Neck Neck: No lymphadenopathy Thyroid: Thyroid normal Chest Chest palpation & inspection: normal inspection of the chest Resp Effort & Inspection: normal respiratory effort and no audible wheezes Auscultation: clear to auscultation bilaterally, no crackles, no wheezes and lung sounds not diminished Cardio Rate: regular rate Rhythm: regular rhythm Peripheral pulses: radial pulses present and dorsalis pedis present GI Other: guiac stools negative prostrate enlarged, + hemorrhoids Palpation (GI): no masses Auscultation: normal bowel sounds and normoactive bowel sounds Male General Exam: Yes normal external exam Skin General skin exam: no rashes or lesions noted Rashes: no rashes Neuro General: No confusion Cranial nerves: Yes Equal, round and reactive pupils present and Yes Normal hea ring present Cognition (Neuro): normal cognition Gait exam (Neuro): Normal gait present Motor exam (neuro): 5/5 motor strength present throughout Deep tendon reflexes (DTR's): Right brachioradialis reflex intensity grade: 2+, Left brachioradialis reflex intensity grade: 2+, Right patellar reflex intensity grade: 2+ and Left patellar reflex intensity grade: 2+ Extrem General: No edema Coding Level of Care Code Est Pt Prev Care 40-64y(56361) Diagnoses Annual physical exam Z00.00 Colon cancer screening Z12.11 Colonoscopy refused Z53.20 Hemorrhoids K64.9 Prostate enlargement N40.0 Impacted cerumen of both ears H61.23 Additional Codes JUDITH-7 Assessment Billing - JUDITH-7 Assessment Tool: JUDITH-7 Assessment 76182 ([id number]) PHQ-9 - 28277 - PHQ-9 Billing: Yes ([id number]) Assessment & Plan Assessment & Plan (1) Annual physical exam: Code(s): Z00.00 - Encounter for general adult medical examination without abnormal findings Category: Medical Plan: Patient is advised to eat healthy, keep well hydrated, keep active and have adequate sleep. (2) Colon cancer screening: Code(s): Z12.11 - Encounter for screening for malignant neoplasm of colon Category: Medical (3) Colonoscopy refused: Code(s): Z53.20 - Procedure and treatment not carried out because of patient's decision for unspecified reasons Category: Medical (4) Hemorrhoids: Code(s): K64.9 - Unspecified hemorrhoids Category: Medical (5) Prostate enlargement: Code(s): N40.0 - Benign prostatic hyperplasia without lower urinary tract symptoms Category: Medical (6) Impacted cerumen of both ears: Code(s): H61.23 - Impacted cerumen, bilateral Category: Medical Plan History of Present Illness The patient is a 59-year-old male presenting for a wellness visit and routine physical examination. 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 He has been dealing with lumbar degenerative disc disease as part of his chronic medical issues. He has a past history of alcohol abuse but presently partakes minimally, roughly consuming two beers weekly. He reports a past history of tobacco use, but no current use. The patient underwent cholecystectomy in May 2023 and has experienced issues with compliance to colonoscopy preparations, leading to intol erance and being unable to complete the prep. Attempts to perform fecal immunochemical test kits were also unsuccessful as the kits were not received. Family history is significant for paternal heart disease and pancreatic cancer. No personal history of myocardial infarctions or other cancers is noted. The patient experiences good bowel function but has a history of hemorrhoids causing occasional bleeding after constipation-induced straining. This symptom is currently not active. 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 An umbilical hernia was successfully repaired. Health Maintenance - Previous cholecystectomy performed in May 2023. - History of documented normal blood work including complete blood count, renal function with creatinine of 1.04, liver function tests, thyroid levels, LDL cholesterol at 100, and normal PSA level. - Last tetanus vaccination was in 2013, reminder for renewal. - Discussion on flu vaccination; patient uncertain about recent status. - Smoking cessation discussed and confirmed. - Minimal alcohol consumption; ongoing monitoring advised. - Screening for colon cancer with colonoscopy was declined; alternative methods unsuccessful. - Advised on ibuprofen use due to potential renal implications; recommended cautious use. Social History - Works night shifts; impacts on sleep and urinary schedule. - Former tobacco user, currently abstinent. - Minimal alcohol use, estimating two beers weekly. - Family history significant for paternal heart disease and pancreatic cancer. - Reports good dietary intake with an absence of specific dietary complaints or issues. Review of Systems - Respiratory: Denies shortness of breath, cough, or chest pain. - Gastrointestinal: Denies nausea, vomiting, or recent rectal bleeding. - Neurological: Denies dizziness or syncope. Reports occasional hearing difficulty per spouse?s observation. - Genitourinary: Denies frequency in urination patterns; no nocturnal episodes generally. Physical Exam General: Cooperative, healthy appearing, comfortable, no acute distress and well developed Orientation: Patient oriented x3 Limitations: No limitations Head: Normal to inspection Ears: Hearing grossly normal bilaterally, but ear wax noted, eardrum not visible Nose: Normal external nose present Face and sinus: Normal facial exam Eyes: Appearance normal, both eyes and all related structures Neck: Normal visual inspection and Yes full ROM Respiratory: Normal respiratory effort and able to speak in complete sentences. Clear to auscultation bilaterally Cardiovascular: Regular rate and rhythm. Normal S1 and S2 GI: Normal to inspection. Soft to palpation and nontender. Umbilical hernia noted, but not getting bigger. Hemorrhoids present, not inflamed Skin: No rashes or lesions noted Neuro: Patient oriented x3 Extremities: Normal to inspection Results - Labs/Tests: Completed blood work shows a normal complete blood count, normal renal and liver functions, PSA level normal, LDL at 100, normal thyroid function tests. Plan The patient's visit was centered on health maintenance. No changes to his ch ronic neuropathic management were proposed, as no acute concerns arose. His alcohol and tobacco history suggest abstention, which is positive. Colonoscopy preparation presents challenges; we will seek alternative screening approaches. Vaccination updates were discussed, particularly regarding tetanus and flu. His lipid profile is stable, and renal function is maintained. Hemorrhoid management remains dietary, stressing adequate fiber intake to avert symptoms. Family history guides future preventive conversations. Patient was informed and verbally consented to the use of an ambient scribe for clinic note documentation during this visit. Discussion Notes I reviewed the importance of maintaining health-promotive practices, with specific attention to smoking cessation and moderate alcohol consumption. We discussed issues relating to colonoscopy preparation, exploring further alternatives given his past intolerances. Family health risks like heart disease and cancer necessitate sustained vigilance and preventive dialogue. The significance of updated vaccinations, particularly tetanus, was emphasized with a view to ensuring timely scheduling. Dietary measures were reinforced for hemo rrhoid and constipation management, accentuating the role of fiber intake. Patient Instructions - Continue to abstain from tobacco and limit alcohol to moderate levels. - Consider discussing alternative colon cancer screening methods, mindful of preparation intolerances. - Schedule a tetanus booster, given that the last one was administered in 2013. - Maintain a high-fiber diet to manage hemorrhoid symptoms. - Follow through with vaccination updates as necessary and stay informed on the flu shot status. - Be vigilant for symptoms such as changes in urinary habits, unexpected rectal bleeding, or severe abdominal pain. Seek medical advice if these occur. - Stay hydrated and maintain regular physical activity levels. - Return to clinic as directed or if new symptoms arise. Orders: Orders Lipid Panel 1 Year E78.00 - Pure hypercholesterolemia, unspecified, N52.9 - Male erectile dysfunction, unspecified Uric Acid 1 Year N52.9 - Male erectile dysfunction, unspecified Complete Blood Count Auto Diff 1 Year N52.9 - Male erectile dysfunction, unspecified Comprehensive Met. Panel 1 Year N52.9 - Male erectile dysfunction, unspecified Free T4 (Free Thyroxine) 1 Year N52.9 - Male erectile dysfunction, unspecified Thyroid Stimulating Hormone 1 Year N52.9 - Male erectile dysfunction, unspecified Vitamin B12 and Folate 1 Year N52.9 - Male erectile dysfunction, unspecified Prostate Specific Antigen Scr 1 Year N52.9 - Male erectile dysfunction, unspecified
[2024-05-09 11:52] VITALS: BP 92/58; PULSE 67; TEMP 36.2; O2SAT 98; BMI 23.9
== END 2024-05-09 12:41 | disposition home or self-care (01) ==
LOC: HO.HMCH 11:21
PROVIDERS: PCP Internal Medicine; Visit Provider Internal Medicine
DX: Z00.00 Encounter for general adult medical examination without abnormal findings (principal); Z12.11 Encounter for screening for malignant neoplasm of colon; Z53.20 Procedure and treatment not carried out because of patient's decision for unspecified reasons; K64.9 Unspecified hemorrhoids; N40.0 Benign prostatic hyperplasia without lower urinary tract symptoms; H61.23 Impacted cerumen, bilateral